=== PATIENT | female | born 1945 | race Caucasian/White ===

== ENCOUNTER 2019-09-09 18:39 | Inpatient (IN) | payer OTHER, MEDICARE ==
--- NOTE | 2019-09-09 18:55 | ER Document Report ---
ED Medical Screen (RME) - General Chief Complaint: Abdominal Pain Stated Complaint: ABDOMINAL PAIN Notes: Patient is a 74-year-old white female with past medical history of diabetes, hypertension, hyperlipidemia and peripheral vascular disease who presents the emergency department the chief complaint of right-sided abdominal pain that began 2 days ago. She states is been associated with some scant episodes of nausea and vomiting. She denies any specific provocative or palliative factors. She denies any fever. No diarrhea. No recent travel or known sick contacts. No urinary symptoms. I have treated and performed a rapid initial assessment of this patient. A comprehensive ED assessment and evaluation of the patient, analysis of test results and completion of medical decision making process will be conducted by additional ED providers. PHYSICAL EXAMINATION: GENERAL: Well-appearing, well-nourished and in no acute distress. A&Ox4. Answers questions appropriately. Physical Exam - Vital signs Vitals: Temp Pulse Resp BP Pulse Ox 98.7 F 125 H 18 177/79 H 93 09/09/19 18:46 09/09/19 18:46 09/09/19 18:46 09/09/19 18:46 09/09/19 18:46 Course - Vital Signs Vital signs: Temp Pulse Resp BP Pulse Ox 98.7 F 125 H 18 177/79 H 93 09/09/19 18:46 09/09/19 18:46 09/09/19 18:46 09/09/19 18:46 09/09/19 18:46
[2019-09-09 19:56] LABS: APPEARANCE,URINE SLIGHTLY-CLOUDY; BILIRUBIN,URINE NEGATIVE (NEGATIVE); GLUCOSE, URINE 50 mg/dL (NEGATIVE); KETONES,URINE NEGATIVE (NEGATIVE); PROTEIN,URINE 30 mg/dL (NEGATIVE); UROBILINOGEN,URINE NEGATIVE mg/dL (<2.0)
[2019-09-09 19:57] LABS: COLOR,URINE DARK YELLOW
[2019-09-09 20:09] LABS: ALBUMIN 3.4 g/dL (3.5-5.0); ALKALINE PHOSPHATASE 121 U/L (38-126); ANION GAP 10 (5-19); ASPARTATE AMINO TRANSFERASE 28 U/L (14-36); BILIRUBIN,DIRECT 0.2 mg/dL (0.0-0.4); BILIRUBIN,TOTAL 1.1 mg/dL (0.2-1.3); BLOOD UREA NITROGEN 18 mg/dL (7-20); CALCIUM 9.1 mg/dL (8.4-10.2); CARBON DIOXIDE 23 mmol/L (22-30); CHLORIDE 98 mmol/L (98-107); GLUCOSE 267 mg/dL (75-110); POTASSIUM 4.7 mmol/L (3.6-5.0); TOTAL PROTEIN 7.3 g/dL (6.3-8.2)
[2019-09-09 20:20] LABS: HEMOGLOBIN 14.1 g/dL (12.0-15.5); MEAN CORPUSCULAR HEMOGLOBIN 30.6 pg (27.0-33.4); MEAN CORPUSCULAR HGB CONC 34.3 g/dL (32.0-36.0); MEAN CORPUSCULAR VOLUME 89 fl (80-97); PLATELET COUNT 312 10^3/uL (150-450); RED CELL DISTRIBUTION WIDTH 14.4 % (11.5-14.0); WHITE BLOOD COUNT 17.9 10^3/uL (4.0-10.5)
[2019-09-09 20:26] LABS: ABSOLUTE LYMPHOCYTES# (MANUAL) 0.7 10^3/uL (0.5-4.7); ABSOLUTE MONOCYTES # (MANUAL) 0.9 10^3/uL (0.1-1.4); BASOPHILS % (MANUAL) 0 % (0-2); EOSINOPHILS % (MANUAL) 0 % (0-6); LYMPHOCYTES % (MANUAL) 4 % (13-45); MONOCYTES % (MANUAL) 5 % (3-13); SEGMENTED NEUTROPHILS % (MAN) 91 % (42-78); TOTAL CELLS COUNTED 100
[2019-09-09 20:27] LABS: TOXIC GRANULATION SLIGHT
[2019-09-09 20:28] LABS: ANISOCYTOSIS SLIGHT; BURR CELLS SLIGHT; OVALOCYTES SLIGHT; PLATELET COMMENT ADEQUATE; POIKILOCYTOSIS SLIGHT
[2019-09-09] MEDS ORDERED: MORPHINE SULFATE 10 MG/ML INJ IV ONE (20:30)
[2019-09-09] MEDS ORDERED: NORMAL SALINE 1000 ML 1,000 ML IV ONE ×2 (20:31→22:56)
[2019-09-09] MEDS ORDERED: ONDANSETRON HCL INJ/PF 4 MG/2 ML SDV IV ONE (20:31)
--- NOTE | 2019-09-09 20:35 | ER Document Report ---
ED GI/ - General Chief Complaint: Abdominal Pain Stated Complaint: ABDOMINAL PAIN Time Seen by Provider: 09/09/19 20:25 Notes: Patient is a 74-year-old female that comes emergency department for chief complaint of worsening abdominal pain over the past 2 days or so, she states that it started with pain in her right abdomen and has significantly worsened, she vomited 3 times yesterday and once today, she tried eating around lunchtime but was unable to. She denies flank pain, dysuria, fever/chills, or any other locations of pain. She denies abnormal bowel movements. Past medical history includes insulin-dependent type 2 diabetes, hypertension, hyperlipidemia, CAD with stents. She is not on a blood thinner other than Aspirin. She denies any abdominal surgeries. - Related Data Allergies/Adverse Reactions: No Known Allergies Allergy (Unverified 09/09/19 18:56) Past Medical History - General Information source: Patient - Social History Smoking Status: Never Smoker Frequency of alcohol use: None Drug Abuse: None Lives with: Family Family History: Reviewed & Not Pertinent Patient has suicidal ideation: No Patient has homicidal ideation: No - Past Medical History Cardiac Medical History: Reports: Hx Coronary Artery Disease, Hx Hypercholesterolemia, Hx Hypertension Endocrine Medical History: Reports: Hx Diabetes Mellitus Type 2 Past Surgical History: Reports: Hx Cardiac Catheterization - Immunizations Immunizations up to date: Yes Hx Diphtheria, Pertussis, Tetanus Vaccination: Yes Review of Systems - Review of Systems Constitutional: No symptoms reported EENT: No symptoms reported Cardiovascular: No symptoms reported Respiratory: No symptoms reported Gastrointestinal: See HPI Genitourinary: No symptoms reported Female Genitourinary: No symptoms reported Musculoskeletal: No symptoms reported Skin: No symptoms reported Hematologic/Lymphatic: No symptoms reported Neurological/Psychological: No symptoms reported Physical Exam - Vital signs Vitals: Temp Pulse Resp BP Pulse Ox 98.7 F 125 H 18 177/79 H 93 09/09/19 18:46 09/09/19 18:46 09/09/19 18:46 09/09/19 18:46 09/09/19 18:46 - Notes Notes: GENERAL: Alert, cooperative, appears to be in pain HEAD: Normocephalic, atraumatic. EYES: Pupils equal, round, and reactive to light. Extraocular movements intact. ENT: Oral mucosa moist, tongue midline. Oropharynx unremarkable. Airway patent. LUNGS: Clear to auscultation bilaterally, no wheezes, rales, or rhonchi. No respiratory distress. Non-tender chest wall. HEART: Tachycardic, normal rhythm, no murmur ABDOMEN: No rigidity or distention but patient has peritoneal signs and is guarding all along the right side of the abdomen in both upper and lower quadrants. Left side of the abdomen is benign. Bowel sounds are present. GENITOURINARY: Unremarkable with no concerning findings EXTREMITIES: Moves all 4 extremities spontaneously. No edema, normal radial and dorsalis pedis pulses bilaterally. No cyanosis. BACK: no cervical, thoracic, lumbar midline tenderness. No saddle anesthesia, normal distal neurovascular exam. Moves all extremities in full range of motion. NEUROLOGICAL: Alert and oriented x3. Normal speech. Cranial nerves II through XII grossly intact. Strength 5/5 in all extremities. PSYCH: Normal affect, normal mood. SKIN: Warm, dry, normal turgor. No rashes or lesions noted. Course - Re-evaluation Re-evalutation: Patient has obvious pain with any movement, patient is guarding all on the right side of her abdomen and both upper and lower quadrants, she is tachycardic and ill-appearing. On reevaluation patient is much more comfortable, she states her pain is completely gone. She still mildly tachycardic, she is receiving IV fluids. CBC shows leukocytosis at 17.9 with elevation of neutrophils, chemistry nonspecific, urinalysis shows elevated specific gravity but is otherwise unremarkable. CT was delayed for some reason but is being performed to rule out acute abdomen. CT of the abdomen and pelvis with IV contrast showing acute cholecystitis, does not show acute appendicitis. Patient does have a somewhat long appearing gallbladder. She appears to have referred pain from this. Patient has been started on Zosyn and kept n.p.o. 09/09/19 23:22 Dr. Brown (general surgery) evaluated the patient, he recommends antibiotics, admission to the medical service for a 1-2 days on antibiotics, he recommends a dmission by medicine because patient has multiple comorbidities and she is 74 years old[address] Discuss[address] with Dr. Au, hospitalist, he accepts patient for admission to the medical floor. Patient states appreciation and agreement with plan. - Vital Signs Vital signs: Temp Pulse Resp BP Pulse Ox 99.7 F 116 H 17 154/71 H 92 09/10/19 01:08 09/10/19 01:08 09/10/19 01:08 09/10/19 01:08 09/10/19 01:08 - Laboratory Result Diagrams: 09/10/19 05:18 09/09/19 19:15 Laboratory results interpreted by me: 09/09/19 09/09/19 09/09/19 19:15 19:15 19:15 WBC 17.9 H RDW 14.4 H Seg Neuts % (Manual) 91 H Lymphocytes % (Manual) 4 L Abs Neuts (Manual) 16.3 H Sodium 131.0 L Est GFR ( Amer) 56 L Est GFR (MDRD) Non-Af 46 L Glucose 267 H Albumin 3.4 L TSH Free T3 pg/mL Urine Protein 30 H Urine Glucose (UA) 50 H Urine Blood SMALL H Leukocyte Esterase Rfl MODERATE H 09/09/19 09/09/19 19:15 19:15 WBC RDW Seg Neuts % (Manual) Lymphocytes % (Manual) Abs Neuts (Manual) Sodium Est GFR ( Amer) Est GFR (MDRD) Non-Af Glucose Albumin TSH 0.08 L Free T3 pg/mL 2.00 L Urine Protein Urine Glucose (UA) Urine Blood Leukocyte Esterase Rfl Discharge - Discharge Clinical Impression: Acute cholecystitis Abdominal pain Qualifiers: Abdominal location: generalized Qualified Code(s): R10.84 - Generalized abdominal pain Vomiting Qualifiers: Vomiting type: unspecified Vomiting Intractability: non-intractable Nausea presence: with nausea Qualified Code(s): R11.2 - Nausea with vomiting, unspecified Leukocytosis Qualifiers: Leukocytosis type: unspecified Qualified Code(s): D72.829 - Elevated white blood cell count, unspecified Condition: Stable Disposition: ADMITTED INPATIENT Admitting Provider: Angely (Hospitalist) Unit Admitted: Medical Floor
--- NOTE | 2019-09-09 22:30 | RADIOLOGY REPORT (SQ) ---
EXAM DESCRIPTION: CT ABDOMEN PELVIS WITH IV CONTRAST COMPLETED DATE/TME: 09/09/2019 20:31 CLINICAL HISTORY: 74 years Female RLQ pain, r/o appendicitis COMPARISON: None. TECHNIQUE: Contiguous axial images obtained through the abdomen and pelvis following IV contrast. Reformatted images obtained. This exam was performed according to our department optimization program which includes automated exposure control, adjustment of the mA and/or kv according to patient size and/or use of iterative reconstruction technique. FINDINGS: Atelectasis in the lung bases bilaterally. Hiatal hernia. The spleen and pancreas appear unremarkable. No adrenal masses. The kidneys appear unremarkable. No hydronephrosis. The gallbladder is distended with wall thickening and marked surrounding inflammatory change consistent with acute cholecystitis. There is adjacent wall thickening in the hepatic flexure of the colon. Some wall thickening also present in the duodenum. Cholelithiasis is suspected. No aneurysmal dilatation of the aorta. Extensive vascular calcification. No bowel obstruction. The appendix is mildly prominent in the axial images but it appears normal in caliber on the coronal sequence. Suspect that the appendix is within normal limits. The wall does not appear thickened.. Small amount of free fluid in the pelvis. IMPRESSION: Findings consistent with cholelithiasis and acute cholecystitis with adjacent wall thickening in the duodenum and the hepatic flexure of the colon. This could be further evaluated with ultrasound or nuclear medicine study Appendix likely within normal limits. No convincing evidence for appendicitis Small amount of free fluid in the pelvis Extensive vascular calcification Moderate hiatal hernia with bilateral basilar atelectasis
[2019-09-09] MEDS ORDERED: PIPERACILLIN/TAZOBACTAM 3.375 GM VIAL IV ONE (22:42)
--- NOTE | 2019-09-09 23:43 | PDOC CONSULTATION ---
Consultation Consult Date: 09/09/19 Attending physician:: KERI CEE Provider Consulted: KEVIN JIMENEZ Consult reason:: cholecystitis History of Present Illness Admission Date/PCP: YARY SAMUELS PA-C History of Present Illness: NELLY BELL is a 74 year old female that comes emergency department for chief complaint of worsening abdominal pain over the past 2 days or so, she states that it started with pain in her right abdomen and has significantly worsened, she vomited 3 times yesterday and once today, she tried eating around lunchtime but was unable to. She denies flank pain, dysuria, fever/chills, or any other locations of pain. She denies abnormal bowel movements. Past medical history includes insulin-dependent type 2 diabetes, hypertension, hyperlipidemia, CAD with stents. She is not on a blood thinner other than Aspirin. She denies any abdominal surgeries Past Medical History Cardiac Medical History: Reports: Hyperlipidema, Hypertension Endocrine Medical History: Reports: Diabetes Mellitus Type 2 Past Surgical History Past Surgical History: Reports: Other - shoulder/neck surgery reported by pt Social History Lives with: Family Smoking Status: Never Smoker Family History Parental Family History Reviewed: No Children Family History Reviewed: NA Sibling(s) Family History Reviewed.: NA Medication/Allergy Allergies/Adverse Reactions: No Known Allergies Allergy (Unverified 09/09/19 18:56) Review of Systems Constitutional: PRESENT: anorexia, weakness Eyes: ABSENT: as per HPI, visual disturbances, other Ears: ABSENT: as per HPI, hearing changes, other Nose, Mouth, and Throat: ABSENT: as per HPI, headache(s), mouth pain, sore throat, vertigo, other Breasts: ABSENT: as per HPI, other Cardiovascular: ABSENT: as per HPI, chest pain, dyspnea on exertion, edema, orthropnea, palpitations, other Respiratory: ABSENT: as per HPI, cough, dyspnea, hemoptysis, sputum, other Gastrointestinal: ABSENT: as per HPI, abdominal pain, bloating, coffee ground emesis, constipation, diarrhea, dysphagia, heartburn, hematemesis, hematochezia, melena, nausea, vomiting, other Genitourinary: ABSENT: as per HPI, difficulty urinating, dysuria, hematuria, nocturia, other Musculoskeletal: ABSENT: as per HPI, back pain, deformity, joint swelling, muscle weakness, other Integumentary: ABSENT: as per HPI, diaphoresis, erythema, lesions, pruritus, rash, wounds, other Neurological: ABSENT: as per HPI, abnormal gait, abnormal movements, abnormal speech, confusion, convulsions, dizziness, focal weakness, frequent falls, lack of coordination, memory loss, numbness, paresthesias, restless legs, syncope, tingling, tremor(s), vertigo, weakness, other Psychiatric: ABSENT: as per HPI, anxiety, depression, hallucinations, homidical ideation, suicidal ideation, other Endocrine: ABSENT: as per HPI, cold intolerance, flushing, heat intolerance, menstrual abnormalities, polydipsia, polyphagia, polyuria, other Hematologic/Lymphatic: ABSENT: as per HPI, easy bleeding, easy bruising, lymphadenopathy, other Allergic/Immunologic: ABSENT: as per HPI, seasonal rhinorrhea, other Physical Exam Vital Signs: Temp Pulse Resp BP Pulse Ox 99.8 F 118 H 25 H 159/74 H 92 09/09/19 23:10 09/09/19 23:10 09/09/19 23:10 09/09/19 23:10 09/09/19 23:10 Intake & Output 09/08/19 09/09/19 09/10/19 06:59 06:59 06:59 Intake Total 1000 Balance 1000 Weight 72.8 kg General appearance: PRESENT: mild distress Head exam: PRESENT: atraumatic Eye exam: PRESENT: EOMI Mouth exam: PRESENT: dry mucosa Teeth exam: PRESENT: poor dentation Neck exam: PRESENT: full ROM Respiratory exam: PRESENT: clear to auscultation radha Cardiovascular exam: PRESENT: RRR Pulses: PRESENT: normal radial pulses, normal femoral pulses Vascular exam: PRESENT: normal capillary refill Breast: PRESENT: Normal GI/Abdominal exam: PRESENT: other - tender ruq with extension to rt lower quadr ent + becker's Rectal exam: PRESENT: deferred Extremities exam: PRESENT: full ROM Musculoskeletal exam: PRESENT: full ROM Neurological exam: PRESENT: alert, awake, oriented to person, oriented to place Psychiatric exam: PRESENT: appropriate affect Skin exam: PRESENT: dry Results Laboratory Results: 09/09/19 19:15 09/09/19 19:15 09/09/19 09/09/19 09/09/19 19:15 19:15 19:15 WBC 17.9 H RBC 4.60 Hgb 14.1 Hct 41.0 MCV 89 MCH 30.6 MCHC 34.3 RDW 14.4 H Plt Count 312 Seg Neutrophils % Not Reportable Sodium 131.0 L Potassium 4.7 Chloride 98 Carbon Dioxide 23 Anion Gap 10 BUN 18 Creatinine 1.16 Est GFR ( Amer) 56 L Glucose 267 H Calcium 9.1 Total Bilirubin 1.1 AST 28 Alkaline Phosphatase 121 Total Protein 7.3 Albumin 3.4 L Lipase 41.5 Urine Color DARK YELLOW Urine Appearance SLIGHTLY-CLOUDY Urine pH 5.0 Ur Specific Rea 1.020 Urine Protein 30 H Urine Glucose (UA) 50 H Urine Ketones NEGATIVE Urine Blood SMALL H Urine RBC (Auto) 4 Impressions: Abdomen/Pelvis CT 09/09/19 20:31 IMPRESSION: Findings consistent with cholelithiasis and acute cholecystitis with adjacent wall thickening in the duodenum and the hepatic flexure of the colon. This could be further evaluated with ultrasound or nuclear medicine study Appendix likely within normal limits. No convincing evidence for appendicitis Small amount of free fluid in the pelvis Extensive vascular calcification Moderate hiatal hernia with bilateral basilar atelectasis Assessment & Plan - Diagnosis (1) Abdominal pain Qualifiers: Abdominal location: generalized Qualified Code(s): R10.84 - Generalized abdominal pain - Plan Summary Plan Summary: pt with diabetes, ruq pain and elevated wbc ct c/w thickened gallbladder wall and pericholecystic stranding c/w clinical picture of acute cholecystitis pt has extensive medical hx and is s/p coronary art stenting pt is unsure whether she is on an antiplatlet med recommend medical eval and admission would start iv abx iv hydration and will reeval pt in am for cholecystectomy.
[2019-09-10] MEDS ORDERED: ONDANSETRON HCL INJ/PF 4 MG/2 ML SDV IV PRN (00:01)
[2019-09-10] MEDS ORDERED: RINGERS SOLUTION,LACTATED 1,000 ML IV PRN (00:01)
[2019-09-10] MEDS ORDERED: GLUCAGON,HUMAN RECOMB 1 MG INJ IM PRN (00:09)
[2019-09-10] MEDS ORDERED: DEXTROSE 40% GEL 15 GM TUBE PO PRN ×3 (00:09→06:53)
[2019-09-10] MEDS ORDERED: DEXTROSE 50%-WATER 25 GM/50 ML DISP.SYRIN IV PRN ×4 (00:09→06:53)
[2019-09-10] MEDS ORDERED: ACETAMINOPHEN 325 MG TABLET PO PRN (00:12)
[2019-09-10] MEDS ORDERED: HYDRALAZINE HCL INJ/PF 20 MG/1 ML SDV IV PRN (00:12)
[2019-09-10] MEDS ORDERED: ACETAMINOPHEN 650 MG SUPP.RECT PR PRN (00:12)
[2019-09-10] MEDS ORDERED: LORAZEPAM INJ 2 MG/1 ML VIAL IV PRN (00:12)
[2019-09-10] MEDS ORDERED: MORPHINE SULFATE 10 MG/ML INJ IV PRN ×3 (00:12)
[2019-09-10] MEDS ORDERED: GUAIFENESIN SYRP 200 MG/10 ML UDC PO PRN (00:12)
[2019-09-10] MEDS: NORMAL SALINE 1000 ML 1,000 ML IV PRN ×2 (00:24→23:13)
[2019-09-10] MEDS ORDERED: PIPERACILLIN/TAZOBACTAM 3.375 GM VIAL IV PRN (01:00)
[2019-09-10] MEDS ORDERED: PIPERACILLIN/TAZOBACTAM 3.375 GM VIAL IV ONE (01:12)
--- NOTE | 2019-09-10 01:34 | PDOC H&P ---
History of Present Illness Admission Date/PCP: 09/09/2019 23:40 YARY SAMUELS PA-C Patient complains of: Abdominal pain History of Present Illness: NELLY ELLIOTT is a 74 year old female who presented to the emergency room with a 3-day history of abdominal pain. She admits to the gradual onset and progressively worsening of a constant, waxing and waning, colicky-pressure pain in her right abdomen without radiation. Her pain is accompanied by nausea with vomiting and is associated with anorexia. She denies other associated or accompanying signs and symptoms. She denies prior similar episodes. She has not identified any aggravating or ameliorating factors for her abdominal pain. In the emergency room she was found to have an elevated white blood count and was noted to have acute cholecystitis on CT of the abdomen and pelvis. She was seen in consultation at the request the emergency room physician by Dr. Brown who has requested that the hospitalist service admit the patient and consult him for surgical care. Patient was subsequently admitted to the hospital for further evaluation treatment. Past Medical History Cardiac Medical History: Reports: Coronary Artery Disease, Hyperlipidema, Hypertension, Peripheral Vascular Disease Denies: Atrial Fibrillation, Congestive Heart Failure, DVT, Myocardial Infarction, Pulmonary Embolism Pulmonary Medical History: Denies: Asthma, Chronic Obstructive Pulmonary Disease (COPD) EENT Medical History: Denies: None, Cataracts, Ears - Hearing aids Neurological Medical History: Denies: Hemorrhagic CVA, Ischemic CVA, Seizures Endocrine Medical History: Reports: Diabetes Mellitus Type 2, Obesity Denies: Diabetes Mellitus Type 1, Hyperthyroidism, Hypothyroidism Renal/ Medical History: Denies: Chronic Kidney Disease, Nephrolithiasis Malignancy Medical History: Reports: None GI Medical History: Denies: Cirrhosis, Crohn's Disease, Gastroesophageal Reflux Disease, Hepatitis, Peptic Ulcer Disease, Ulcerative Colitis Musculoskeltal Medical History: Reports: Arthritis Denies: Gout Skin Medical History: Denies: Eczema, Psoriasis Psychiatric Medical History: Denies: Alcohol Dependency, Substance Abuse, Tobacco Dependency Traumatic Medical History: Reports: None Hematology: Denies: Anemia, Bleeding Tendencies Infectious Medical History: Reports: None Past Surgical History Past Surgical History: Reports: Cardiac Catheterization, Carotid Endarterectomy - Right, Coronary Stent - X2, Orthopedic Surgery - Right rotator cuff surgery, Vascular Surgery - Multiple arterial stents to the left lower extremity Social History Information Source: Patient Lives with: Family Smoking Status: Never Smoker Electronic Cigarette use?: No Frequency of Alcohol Use: None Hx Recreational Drug Use: No Drugs: None Hx Prescription Drug Abuse: No - Advance Directive Resuscitation Status: Full Code Surrogate healthcare decision maker:: Alek Elliott Family History Family History: CAD, DM, Hyperlipidemia, Hypertension, Malignancy, Other - Peripheral vascular disease Parental Family History Reviewed: Yes Children Family History Reviewed: No Sibling(s) Family History Reviewed.: Yes Medication/Allergy Allergies/Adverse Reactions: No Known Allergies Allergy (Unverified 09/09/19 18:56) Review of Systems Constitutional: ABSENT: chills, fever(s) Eyes: ABSENT: visual disturbances, other - Eye pain Ears: ABSENT: hearing changes, other - Ear pain Nose, Mouth, and Throat: ABSENT: headache(s), sore throat Cardiovascular: ABSENT: chest pain, palpitations Respiratory: ABSENT: cough, dyspnea Gastrointestinal: PRESENT: as per HPI, abdominal pain, nausea, vomiting. ABSENT: constipation, diarrhea, hematemesis Genitourinary: ABSENT: dysuria, hematuria Musculoskeletal: ABSENT: back pain, joint swelling Integumentary: ABSENT: pruritus, rash Neurological: ABSENT: confusion, convulsions, focal weakness, memory loss, syncope Psychiatric: ABSENT: anxiety, depression Endocrine: ABSENT: cold intolerance, heat intolerance, polydipsia, polyphagia, polyuria Hematologic/Lymphatic: ABSENT: easy bleeding, easy bruising Allergic/Immunologic: ABSENT: seasonal rhinorrhea Physical Exam Vital Signs: Temp Pulse Resp BP Pulse Ox 99.8 F 118 H 25 H 159/74 H 92 09/09/19 23:10 09/09/19 23:10 09/09/19 23:10 09/09/19 23:10 09/09/19 23:10 Intake & Output 09/07/19 09/08/19 09/09/19 23:59 23:59 23:59 Intake Total 1000 Balance 1000 Weight 72.8 kg General appearance: PRESENT: cooperative, mild distress - Secondary to abdominal discomfort, obese Head exam: PRESENT: atraumatic, normocephalic Eye exam: PRESENT: conjunctiva pink. ABSENT: conjunctival injection, scleral icterus Ear exam: PRESENT: normal external ear exam. ABSENT: bleeding, drainage Mouth exam: PRESENT: dry mucosa, neck supple Teeth exam: PRESENT: poor dentation Neck exam: ABSENT: thyromegaly, tracheal deviation Respiratory exam: PRESENT: clear to auscultation radha, symmetrical, unlabored Cardiovascular exam: PRESENT: RRR. ABSENT: clicks, gallop, rubs Pulses: PRESENT: normal radial pulses, normal dorsalis pedis pul Vascular exam: PRESENT: normal capillary refill. ABSENT: pallor GI/Abdominal exam: PRESENT: hypoactive bowel sounds, Shannon's sign, soft, tenderness - Right abdominal tenderness greater in the upper versus the lower quadrant, without localization.. ABSENT: distended Rectal exam: PRESENT: deferred Extremities exam: ABSENT: joint swelling, pedal edema Musculoskeletal exam: ABSENT: deformity, dislocation Neurological exam: PRESENT: alert, oriented to person, oriented to place, oriented to time, oriented to situation, CN II-XII grossly intact. ABSENT: motor sensory deficit Psychiatric exam: PRESENT: appropriate affect, normal mood Skin exam: PRESENT: dry, intact, warm. ABSENT: jaundice, rash, urticaria Results Laboratory Results: 09/09/19 19:15 09/09/19 19:15 09/09/19 09/09/19 09/09/19 19:15 19:15 19:15 WBC 17.9 H RBC 4.60 Hgb 14.1 Hct 41.0 MCV 89 MCH 30.6 MCHC 34.3 RDW 14.4 H Plt Count 312 Seg Neutrophils % Not Reportable Sodium 131.0 L Potassium 4.7 Chloride 98 Carbon Dioxide 23 Anion Gap 10 BUN 18 Creatinine 1.16 Est GFR ( Amer) 56 L Glucose 267 H Calcium 9.1 Total Bilirubin 1.1 AST 28 Alkaline Phosphatase 121 Total Protein 7.3 Albumin 3.4 L Lipase 41.5 Urine Color DARK YELLOW Urine Appearance SLIGHTLY-CLOUDY Urine pH 5.0 Ur Specific [place] 1.020 Urine Protein 30 H Urine Glucose (UA) 50 H Urine Ketones NEGATIVE Urine Blood SMALL H Urine RBC (Auto) 4 Impressions: Abdomen/Pelvis CT 09/09/19 20:31 IMPRESSION: Findings consistent with cholelithiasis and acute cholecystitis with adjacent wall thickening in the duodenum and the hepatic flexure of the colon. This could be further evaluated with ultrasound or nuclear medicine study Appendix likely within normal limits. No convincing evidence for appendicitis Small amount of free fluid in the pelvis Extensive vascular calcification Moderate hiatal hernia with bilateral basilar atelectasis Assessment and Plan - Diagnosis (1) Acute cholecystitis Is this a current diagnosis for this admission?: Yes (2) Abdominal pain Qualifiers: Abdominal location: generalized Qualified Code(s): R10.84 - Generalized abdominal pain Is this a current diagnosis for this admission?: Yes (3) Vomiting Qualifiers: Vomiting type: unspecified Vomiting Intractability: non-intractable Nausea presence: with nausea Qualified Code(s): R11.2 - Nausea with vomiting, unspecified Is this a current diagnosis for this admission?: Yes (4) Leukocytosis Qualifiers: Leukocytosis type: unspecified Qualified Code(s): D72.829 - Elevated white blood cell count, unspecified Is this a current diagnosis for this admission?: Yes (5) Peripheral vascular disease Is this a current diagnosis for this admission?: Yes (6) Coronary artery disease Qualifiers: Coronary Disease-Associated Artery/Lesion type: [place] artery [place] vs. transplanted heart: [place] heart Associated angina: without angina Qualified Code(s): I25.10 - Atherosclerotic heart disease of [place] coronary artery without angina pectoris Is this a current diagnosis for this admission?: Yes (7) Diabetes mellitus type 2 in obese Is this a current diagnosis for this admission?: Yes (8) Hyperlipidemia Is this a current diagnosis for this admission?: Yes (9) Hypertension Qualifiers: Hypertension type: essential hypertension Qualified Code(s): I10 - Essential (primary) hypertension Is this a current diagnosis for this admission?: Yes (10) Obesity Qualifiers: Obesity type: unspecified obesity type Obesity classification: unspecified obesity classification Serious obesity comorbidity presence: unspecified whether serious comorbidity present Qualified Code(s): E66.9 - Obesity, unspecified Is this a current diagnosis for this admission?: Yes - Plan Summary Summary: Patient will be admitted to medical floor where she received routine supportive and symptomatic cares. She will be placed on IV Zosyn. She will receive IV fluids as both maintenance and replacement for presumed mild hypovolemia due to decreased oral intake and vomiting. Dr. Brown will be consulted for surgical management. She will use morphine sulfate 2 to 4 mg IV every 2 hours as needed for pain utilizing a sliding scale for dosing. She will have Ativan 1 mg IV e very 4 hours as needed for anxiety or restlessness. Before meals and at bedtime Accu-Cheks to be performed and sliding scale insulin will be used for hyperglycemia with a hypoglycemic protocol also in place. CBCs, metabolic profiles, magnesium levels, hemoglobin A1c's, lipid profiles, thyroid profiles and liver function studies will be ordered as needed. Patient will be on a clear liquid diet with diabetic and cardiac restrictions. - Time Time Spent with patient: 15-24 minutes Medications reviewed and adjusted accordingly: Yes Anticipated discharge: Home with Homehealth - Inpatient Certification Based on my medical assessment, after consideration of the patient's comorbi dities, presenting symptoms, or acuity I expect that the services needed warrant INPATIENT care.: Yes I certify that my determination is in accordance with my understanding of Medicare's requirements for reasonable and necessary INPATIENT services [42 CFR 412.3e].: Yes Medical Necessity: Significant Comorbidiites Make Outpatient Treatment Too Risky, Need Close Monitoring Due to Risk of Patient Decompensation, Need For IV Fluids, Need for Pain Control, Need for IV Antibiotics, Need for Surgery, Risk of Complication if Not Cared For in Hospital
[2019-09-10] MEDS: PIPERACILLIN SODIUM/TAZOBACTAM 3.375 GM in NORMAL SALINE 100 ML IV SCH ×4 (05:23→23:12)
[2019-09-10] MEDS: HEPARIN SOD (PORCINE) 5,000 UNIT/ML 1 ML VIAL SUBCUT SCH ×3 (05:27→22:50)
[2019-09-10 05:28] LABS: HEMATOCRIT 35.2 % (36.0-47.0); HEMOGLOBIN 12.2 g/dL (12.0-15.5); MEAN CORPUSCULAR HEMOGLOBIN 30.4 pg (27.0-33.4); MEAN CORPUSCULAR HGB CONC 34.6 g/dL (32.0-36.0); MEAN CORPUSCULAR VOLUME 88 fl (80-97); PLATELET COUNT 246 10^3/uL (150-450); RED CELL DISTRIBUTION WIDTH 14.6 % (11.5-14.0); WHITE BLOOD COUNT 10.2 10^3/uL (4.0-10.5)
[2019-09-10 05:50] LABS: ANION GAP 6 (5-19); BLOOD UREA NITROGEN 15 mg/dL (7-20); CALCIUM 7.8 mg/dL (8.4-10.2); CARBON DIOXIDE 23 mmol/L (22-30); CHLORIDE 104 mmol/L (98-107); CHOLESTEROL 92.47 mg/dL (0-200); GLUCOSE 124 mg/dL (75-110); TRIGLYCERIDES 68 mg/dL (<150)
[2019-09-10 06:00] LABS: DIRECT LDL 37 mg/dL (<100)
[2019-09-10 06:10] LABS: POTASSIUM 3.7 mmol/L (3.6-5.0)
[2019-09-10] MEDS ORDERED: GLUCAGON,HUMAN RECOMB 1 MG INJ SUBCUT PRN (06:53)
[2019-09-10] MEDS: RINGERS SOLUTION,LACTATED 1,000 ML IV PRN ×2 (07:49→17:27)
[2019-09-10] MEDS: INSULIN REG, HUMAN 100 UNIT/ML 3 ML VIAL (PYX) SUBCUT SCH ×4 (07:56→22:50)
[2019-09-10] MEDS ORDERED: METOPROLOL TARTRATE 50 MG TABLET PO ONE (09:24)
[2019-09-10] MEDS ORDERED: LISINOPRIL 10 MG TABLET PO ONE (09:24)
--- NOTE | 2019-09-10 10:02 | PDOC PROGRESS REPORT ---
Subjective Progress Note for:: 09/10/19 Subjective:: The patient's abdominal pain is better but not completely gone. She is currently n.p.o. for surgery. Her blood pressures are starting to run high. Reason For Visit: ACUTE CHOLECYSTITIS,ABDOMINAL PAIN,VOMITING Physical Exam Vital Signs: Temp Pulse Resp BP Pulse Ox 98.5 F 99 18 168/57 H 95 09/10/19 08:00 09/10/19 08:00 09/10/19 08:00 09/10/19 08:00 09/10/19 08:00 Intake & Output 09/09/19 09/10/19 09/11/19 06:59 06:59 06:59 Intake Total 2100 100 Balance 2100 100 Weight 75.4 kg General appearance: PRESENT: cooperative, mild distress, well-developed, well- nourished Head exam: PRESENT: atraumatic, normocephalic Eye exam: PRESENT: conjunctiva pink. ABSENT: scleral icterus Ear exam: PRESENT: normal external ear exam. ABSENT: bleeding, drainage Mouth exam: PRESENT: dry mucosa, tongue midline Respiratory exam: PRESENT: clear to auscultation radha, symmetrical, unlabored. ABSENT: accessory muscle use, prolonged expiratory phas, rales, rhonchi, tachypnea, wheezes Cardiovascular exam: PRESENT: RRR, +S1, +S2. ABSENT: diastolic murmur, irregular rhythm, systolic murmur GI/Abdominal exam: PRESENT: diminished bowel sounds, soft, tenderness - Upper abdomen. ABSENT: distended, guarding Rectal exam: PRESENT: deferred Gentrourinary exam: ABSENT: indwelling catheter Extremities exam: ABSENT: joint swelling, pedal edema Musculoskeletal exam: PRESENT: ambulatory, full ROM, normal inspection Neurological exam: PRESENT: alert, awake, oriented to person, oriented to place, oriented to time, oriented to situation, CN II-XII grossly intact. ABSENT: altered, motor sensory deficit Psychiatric exam: PRESENT: anxious - Slightly anxious about surgery, appropriate affect. ABSENT: agitated Focused psych exam: ABSENT: delusional, paranoid, restlessness Skin exam: PRESENT: dry, normal color, warm. ABSENT: rash Results Laboratory Results: 09/10/19 05:18 09/10/19 05:18 09/09/19 09/09/19 09/09/19 19:15 19:15 19:15 WBC 17.9 H RBC 4.60 Hgb 14.1 Hct 41.0 MCV 89 MCH 30.6 MCHC 34.3 RDW 14.4 H Plt Count 312 Seg Neutrophils % Not Reportable Sodium 131.0 L Potassium 4.7 Chloride 98 Carbon Dioxide 23 Anion Gap 10 BUN 18 Creatinine 1.16 Est GFR ( Amer) 56 L Glucose 267 H Lactic Acid Calcium 9.1 Magnesium Total Bilirubin 1.1 AST 28 Alkaline Phosphatase 121 Total Protein 7.3 Albumin 3.4 L Triglycerides Cholesterol LDL Cholesterol Direct VLDL Cholesterol HDL Cholesterol Amylase Lipase 41.5 TSH Free T3 pg/mL Urine Color DARK YELLOW Urine Appearance SLIGHTLY-CLOUDY Urine pH 5.0 Ur Specific [place] 1.020 Urine Protein 30 H Urine Glucose (UA) 50 H Urine Ketones NEGATIVE Urine Blood SMALL H Urine RBC (Auto) 4 09/09/19 09/09/19 09/09/19 19:15 19:15 19:15 WBC RBC Hgb Hct MCV MCH MCHC RDW Plt Count Seg Neutrophils % Sodium Potassium Chloride Carbon Dioxide Anion Gap BUN Creatinine Est GFR ( Amer) Glucose Lactic Acid Calcium Magnesium Total Bilirubin AST Alkaline Phosphatase Total Protein Albumin Triglycerides Cholesterol LDL Cholesterol Direct VLDL Cholesterol HDL Cholesterol Amylase 74 Lipase TSH 0.08 L Free T3 pg/mL 2.00 L Urine Color Urine Appearance Urine pH Ur Specific [place] Urine Protein Urine Glucose (UA) Urine Ketones Urine Blood Urine RBC (Auto) 09/10/19 09/10/19 09/10/19 01:13 05:18 05:18 WBC 10.2 RBC 4.00 Hgb 12.2 Hct 35.2 L MCV 88 MCH 30.4 MCHC 34.6 RDW 14.6 H Plt Count 246 Seg Neutrophils % Sodium Potassium Chloride Carbon Dioxide Anion Gap BUN Creatinine Est GFR ( Amer) Glucose Lactic Acid 1.8 1.4 Calcium Magnesium Total Bilirubin AST Alkaline Phosphatase Total Protein Albumin Triglycerides Cholesterol LDL Cholesterol Direct VLDL Cholesterol HDL Cholesterol Amylase Lipase TSH Free T3 pg/mL Urine Color Urine Appearance Urine pH Ur Specific [place] Urine Protein Urine Glucose (UA) Urine Ketones Urine Blood Urine RBC (Auto) 09/10/19 05:18 WBC RBC Hgb Hct MCV MCH MCHC RDW Plt Count Seg Neutrophils % Sodium 133.0 L Potassium 3.7 D Chloride 104 Carbon Dioxide 23 Anion Gap 6 BUN 15 Creatinine 0.92 Est GFR ( Amer) > 60 Glucose 124 H Lactic Acid Calcium 7.8 L Magnesium 1.6 Total Bilirubin AST Alkaline Phosphatase Total Protein Albumin Triglycerides 68 Cholesterol 92.47 LDL Cholesterol Direct 37 VLDL Cholesterol 14.0 HDL Cholesterol 41 Amylase Lipase TSH Free T3 pg/mL Urine Color Urine Appearance Urine pH Ur Specific [place] Urine Protein Urine Glucose (UA) Urine Ketones Urine Blood Urine RBC (Auto) Impressions: Abdomen/Pelvis CT 09/09/19 20:31 IMPRESSION: Findings consistent with cholelithiasis and acute cholecystitis with adjacent wall thickening in the duodenum and the hepatic flexure of the colon. This could be further evaluated with ultrasound or nuclear medicine study Appendix likely within normal limits. No convincing evidence for appendicitis Small amount of free fluid in the pelvis Extensive vascular calcification Moderate hiatal hernia with bilateral basilar atelectasis Assessment and Plan - Diagnosis (1) Acute cholecystitis Is this a current diagnosis for this admission?: Yes Plan: 09/10/2019 Patient with acute cholecystitis. Continue antibiotics. Planned cholecystectomy today as soon as she is cleared surgically. (2) Leukocytosis Qualifiers: Leukocytosis type: other Qualified Code(s): D72.828 - Other elevated white blood cell count Is this a current diagnosis for this admission?: Yes Plan: 09/10/2019 Secondary to acute cholecystitis. With antibiotics her white blood cell count is normal today. (3) Vomiting Qualifiers: Vomiting type: unspecified Vomiting Intractability: non-intractable Nausea presence: with nausea Qualified Code(s): R11.2 - Nausea with vomiting, unspecified Is this a current diagnosis for this admission?: Yes Plan: 09/10/2019 Secondary to acute cholecystitis. No vomiting this morning. 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 The patient exhibits good control. When she is on an oral diet will resume her Janumet , long-acting insulin (Toujeo) and diabetic diet. While she is n.p.o. she is having Accu-Cheks 4 times a day with sliding scale coverage. (5) Hypertension Qualifiers: Hypertension type: essential hypertension Qualified Code(s): I10 - Essential (primary) hypertension Is this a current diagnosis for this admission?: Yes Plan: 09/10/2019 Her blood pressures are up. This is a combination of the pain, anxiety and the fact that she has not taken her medicines yet today. She normally takes amlodipine 2.5 mg daily, lisinopril 10 mg daily and metoprolol tartrate 50 mg twice daily. We will resume these medications and monitor her blood pressures. (6) Hyperlipidemia Is this a current diagnosis for this admission?: Yes Plan: 09/10/2019 The patient has an excellent lipid panel. Continue the Zetia 10 mg daily and atorvastatin 40 mg daily. (7) Coronary artery disease Qualifiers: Coronary Disease-Associated Artery/Lesion type: [place] artery [place] vs. transplanted heart: [place] heart Associated angina: without angina Qualified Code(s): I25.10 - Atherosclerotic heart disease of [place] coronary artery without angina pectoris Is this a current diagnosis for this admission?: Yes Plan: 09/10/2019 Patient has a history of coronary disease. In addition to the medications outlined above she takes an aspirin 81 mg daily. She has not reported any chest pain, shortness of breath or diaphoresis. I have ordered an EKG to assess for cardiac clearance for her cholecystectomy. Unless there is anything untoward I believe she will be cleared for her cholecystectomy from a medical standpoint. (8) Anxiety and depression Is this a current diagnosis for this admission?: Yes Plan: We will continue her benzodiazepine therapy with Xanax as well as her Paxil 20 mg daily. (9) Arthritis Is this a current diagnosis for this admission?: Yes Plan: 09/10/2019 The medication list indicates that the patient takes Mobic 15 mg every day as well as diclofenac 50 mg twice a day and Celebrex 100 mg twice a day. She is on 3 different nonsteroidal anti-inflammatories. Consider consolidating therapy. Will defer this to her primary care provider. She is also on Neurontin and this may be related to diabetic neuropathy. (10) Diabetic neuropathy associated with type 2 diabetes mellitus Qualifiers: Diabetes mellitus complication detail: diabetic polyneuropathy Qualified Code(s): E11.42 - Type 2 diabetes mellitus with diabetic polyneuropathy Is this a current diagnosis for this admission?: Yes Plan: 09/10/2019 Continue Neurontin. Patient likely has diabetic neuropathy. (11) Hyponatremia Is this a current diagnosis for this admission?: Yes Plan: 09/10/2019 Serum sodium is just below the normal limit. Not clinically significant at this time. We will continue to monitor with laboratory studies. (12) Hypocalcemia Is this a current diagnosis for this admission?: Yes Plan: 09/10/2019 The patient exhibits low serum calcium. I will add calcium and vitamin D supplement postoperatively. - Plan Summary Summary: Patient will be admitted to medical floor where she received routine supportive and symptomatic cares. She will be placed on IV Zosyn. She will receive IV fluids as both maintenance and replacement for presumed mild hypovolemia due to decreased oral intake and vomiting. Dr. Brown will be consulted for surgical management. She will use morphine sulfate 2 to 4 mg IV every 2 hours as needed for pain utilizing a sliding scale for dosing. She will have Ativan 1 mg IV matteo ry 4 hours as needed for anxiety or restlessness. Before meals and at bedtime Accu-Cheks to be performed and sliding scale insulin will be used for hyperglycemia with a hypoglycemic protocol also in place. CBCs, metabolic profiles, magnesium levels, hemoglobin A1c's, lipid profiles, thyroid profiles and liver function studies will be ordered as needed. Patient will be on a clear liquid diet with diabetic and cardiac restrictions. - Time Time Spent with patient: 25-34 minutes Medications reviewed and adjusted accordingly: Yes Anticipated discharge: Home
[2019-09-10] MEDS ORDERED: AMLODIPINE BESYLATE 2.5 MG TABLET PO ONE (10:30)
[2019-09-10] MEDS: FAMOTIDINE INJ/PF 20 MG/2 ML SDV IV SCH ×2 (11:21→22:50)
--- NOTE | 2019-09-10 11:56 | EKG REPORT ---
SEVERITY:- BORDERLINE ECG - SINUS RHYTHM BORDERLINE LEFT AXIS DEVIATION BORDERLINE PROLONGED QT INTERVAL : Confirmed by: Rubens Gramajo MD 10-Sep-2019 11:55:55
--- NOTE | 2019-09-10 16:03 | PDOC PROGRESS REPORT ---
Subjective Progress Note for:: 09/10/19 Subjective:: This is a 74-year-old female with diabetes and significant coronary disease, admitted for acute cholecystitis. The patient today continues to report right upper quadrant abdominal. She denies nausea, vomiting, fevers, chills, shortness of breath, dizziness, orthostasis. Reason For Visit: ACUTE CHOLECYSTITIS,ABDOMINAL PAIN,VOMITING Physical Exam Vital Signs: Temp Pulse Resp BP Pulse Ox 98.0 F 98 16 158/69 H 93 09/10/19 12:00 09/10/19 12:00 09/10/19 12:00 09/10/19 12:00 09/10/19 12:00 Intake & Output 09/09/19 09/10/19 09/11/19 06:59 06:59 06:59 Intake Total 2100 100 Balance 2100 100 Weight 75.4 kg General appearance: PRESENT: no acute distress, cooperative, other - Overweight Head exam: PRESENT: atraumatic, normocephalic Eye exam: PRESENT: EOMI, PERRLA. ABSENT: scleral icterus Mouth exam: PRESENT: moist, neck supple Neck exam: ABSENT: meningismus, tenderness, thyromegaly, tracheal deviation Respiratory exam: PRESENT: unlabored. ABSENT: chest wall tenderness, tachypnea, wheezes Cardiovascular exam: ABSENT: tachycardia Pulses: PRESENT: normal radial pulses Vascular exam: PRESENT: normal capillary refill GI/Abdominal exam: PRESENT: guarding - Right upper quadrant, Shannon's sign, soft, tenderness - Right upper quadrant Rectal exam: PRESENT: deferred Extremities exam: ABSENT: clubbing Musculoskeletal exam: ABSENT: deformity Neurological exam: PRESENT: alert, awake, oriented to person, oriented to place Psychiatric exam: ABSENT: agitated, anxious, depressed Focused psych exam: ABSENT: delusional Skin exam: ABSENT: cyanosis, erythema, jaundice Results Laboratory Results: 09/10/19 05:18 09/10/19 05:18 09/09/19 09/09/19 09/09/19 19:15 19:15 19:15 WBC 17.9 H RBC 4.60 Hgb 14.1 Hct 41.0 MCV 89 MCH 30.6 MCHC 34.3 RDW 14.4 H Plt Count 312 Seg Neutrophils % Not Reportable Sodium 131.0 L Potassium 4.7 Chloride 98 Carbon Dioxide 23 Anion Gap 10 BUN 18 Creatinine 1.16 Est GFR ( Amer) 56 L Glucose 267 H Lactic Acid Calcium 9.1 Magnesium Total Bilirubin 1.1 AST 28 Alkaline Phosphatase 121 Total Protein 7.3 Albumin 3.4 L Triglycerides Cholesterol LDL Cholesterol Direct VLDL Cholesterol HDL Cholesterol Amylase Lipase 41.5 TSH Free T3 pg/mL Urine Color DARK YELLOW Urine Appearance SLIGHTLY-CLOUDY Urine pH 5.0 Ur Specific [place] 1.020 Urine Protein 30 H Urine Glucose (UA) 50 H Urine Ketones NEGATIVE Urine Blood SMALL H Urine RBC (Auto) 4 09/09/19 09/09/19 09/09/19 19:15 19:15 19:15 WBC RBC Hgb Hct MCV MCH MCHC RDW Plt Count Seg Neutrophils % Sodium Potassium Chloride Carbon Dioxide Anion Gap BUN Creatinine Est GFR ( Amer) Glucose Lactic Acid Calcium Magnesium Total Bilirubin AST Alkaline Phosphatase Total Protein Albumin Triglycerides Cholesterol LDL Cholesterol Direct VLDL Cholesterol HDL Cholesterol Amylase 74 Lipase TSH 0.08 L Free T3 pg/mL 2.00 L Urine Color Urine Appearance Urine pH Ur Specific [place] Urine Protein Urine Glucose (UA) Urine Ketones Urine Blood Urine RBC (Auto) 09/10/19 09/10/19 09/10/19 01:13 05:18 05:18 WBC 10.2 RBC 4.00 Hgb 12.2 Hct 35.2 L MCV 88 MCH 30.4 MCHC 34.6 RDW 14.6 H Plt Count 246 Seg Neutrophils % Sodium Potassium Chloride Carbon Dioxide Anion Gap BUN Creatinine Est GFR ( Amer) Glucose Lactic Acid 1.8 1.4 Calcium Magnesium Total Bilirubin AST Alkaline Phosphatase Total Protein Albumin Triglycerides Cholesterol LDL Cholesterol Direct VLDL Cholesterol HDL Cholesterol Amylase Lipase TSH Free T3 pg/mL Urine Color Urine Appearance Urine pH Ur Specific [place] Urine Protein Urine Glucose (UA) Urine Ketones Urine Blood Urine RBC (Auto) 09/10/19 09/10/19 05:18 09:20 WBC RBC Hgb Hct MCV MCH MCHC RDW Plt Count Seg Neutrophils % Sodium 133.0 L Potassium 3.7 D Chloride 104 Carbon Dioxide 23 Anion Gap 6 BUN 15 Creatinine 0.92 Est GFR ( Amer) > 60 Glucose 124 H Lactic Acid 0.9 Calcium 7.8 L Magnesium 1.6 Total Bilirubin AST Alkaline Phosphatase Total Protein Albumin Triglycerides 68 Cholesterol 92.47 LDL Cholesterol Direct 37 VLDL Cholesterol 14.0 HDL Cholesterol 41 Amylase Lipase TSH Free T3 pg/mL Urine Color Urine Appearance Urine pH Ur Specific [place] Urine Protein Urine Glucose (UA) Urine Ketones Urine Blood Urine RBC (Auto) Impressions: Abdomen/Pelvis CT 09/09/19 20:31 IMPRESSION: Findings consistent with cholelithiasis and acute cholecystitis with adjacent wall thickening in the duodenum and the hepatic flexure of the colon. This could be further evaluated with ultrasound or nuclear medicine study Appendix likely within normal limits. No convincing evidence for appendicitis Small amount of free fluid in the pelvis Extensive vascular calcification Moderate hiatal hernia with bilateral basilar atelectasis Assessment & Plan - Diagnosis (1) Acute cholecystitis Is this a current diagnosis for this admission?: Yes - Plan Summary Plan Summary: This is a 74-year-old female with acute cholecystitis. She also has diabetes and a significant heart history. Consultation has been made with Dr. Cardoso to clear her from a cardiac standpoint. I have discussed the case with him personally. He plans to obtain an echocardiogram, but feels that she is overall acceptable risk for surgery. Continue antibiotics. Plan for surgery tomorrow. Risks and benefits were discussed with the patient, informed consent was obtained, and all questions were answered.
--- NOTE | 2019-09-10 16:30 | PDOC CONSULTATION ---
Consultation-Blank Consultation: CARDIOLOGY CONSULTATION by Dr. Tamia Cardoso on 09/10/2019. Patient seen at 12 noon. 60 minutes spent as patient more than 50% time spent in direct patient care. REASON FOR CONSULTATION: Preoperative cardiac risk assessment in patient with history of CAD admitted for cholecystitis take to me for a diagnosis of acute cholecystitis with cholelithiasis. CONSULT REQUESTING PHYSICIAN: [facility], [facility]. HISTORY OF PRESENT ILLNESS: Patient is a 74-year-old female who was admitted with abdominal pain with nausea and vomiting and diagnosed with acute cholecystitis with cholelithiasis and risk for cholecystectomy. Hence cardiac risk assessment requested in view of the patient's history of coronary artery disease. The patient has a past history of coronary artery disease with no history of MA and history of stents in probably the LAD and a stent to the RCA [although the patient does not remember the vessel she says 1 to the front of the heart and 1 to the vessel in the back of the heart]. The first stent was in 2000 and the second was in 2005. Since then the patient has not had any anginal symptoms. She in fact has had several surgeries after that and the last one was a left carotid endarterectomy in 2017 with no untoward events. She denies any chest pain or discomfort. There is no shortness of breath. There is no PND orthopnea. She has a history of hypertension, diabetes mellitus, and hypothyroidism and depression. She has a prior history of TIA versus CVA with no residual effects with left-sided weakness which culminated in the patient having a left carotid endarterectomy. The patient denies any palpitations or syncope. There is no PND orthopnea or leg edema. Note history obtained from the patient who is not very good historian and also with the patient's via telephone. Past Medical History Cardiac Medical History: Reports: Coronary Artery Disease, Hyperlipidema, Hypertension, Peripheral Vascular Disease Denies: Atrial Fibrillation, Congestive Heart Failure, DVT, Myocardial In farction, Pulmonary Embolism Pulmonary Medical History: Denies: Asthma, Chronic Obstructive Pulmonary Disease (COPD) no history of sleep apnea. EENT Medical History: Denies: None, Cataracts, Ears - Hearing aids Neurological Medical History: Denies: Hemorrhagic CVA, Ischemic CVA, Seizures Endocrine Medical History: Reports: Diabetes Mellitus Type 2, Obesity Denies: Diabetes Mellitus Type 1, Hyperthyroidism, Hypothyroidism Renal/ Medical History: Denies: Chronic Kidney Disease, Nephrolithiasis Malignancy Medical History: Reports: None GI Medical History: Denies: Cirrhosis, Crohn's Disease, Gastroesophageal Reflux Disease, Hepatitis, Peptic Ulcer Disease, Ulcerative Colitis Musculoskeltal Medical History: Reports: Arthritis Denies: Gout Skin Medical History: Denies: Eczema, Psoriasis Psychiatric Medical History: Denies: Alcohol Dependency, Substance Abuse, Tobacco Dependency Traumatic Medical History: Reports: None Hematology: Denies: Anemia, Bleeding Tendencies Infectious Medical History: Reports: None Past Surgical History Past Surgical History: Reports: Cardiac Catheterization, Carotid Endarterectomy -probably right, Coronary, and LAD stents, Orthopedic Surgery - Right rotator cuff surgery, Vascular Surgery - Multiple arterial stents to the left lower extremity Social History Information Source: Patient Lives with: Family Smoking Status: Never Smoker Electronic Cigarette use?: No Frequency of Alcohol Use: None Hx Recreational Drug Use: No Drugs: None Hx Prescription Drug Abuse: No - Advance Directive Resuscitation Status: Full Code Surrogate healthcare decision maker:: Alek Elliott. [Patient's ] Family History Family History: CAD, DM, Hyperlipidemia, Hypertension, Malignancy, Other - Peripheral vascular disease Parental Family History Reviewed: Yes Children Family History Reviewed: No Sibling(s) Family History Reviewed.: Yes Medication/Allergy Allergies/Adverse Reactions: No Known Allergies Allergy (Unverified 09/09/19 18:56) Alprazolam [Xanax 0.25 mg Tablet] 0.25 mg PO BID 09/10/19 Amlodipine Besylate [Norvasc 2.5 mg Tablet] 2.5 mg PO DAILY 09/10/19 Aspirin [Aspir-Low] 81 mg PO DAILY 09/10/19 Atorvastatin Calcium [Lipitor 40 mg Tablet] 40 mg PO DAILY 09/10/19 Celecoxib [Celebrex 100 mg Capsule] 100 mg PO Q12 09/10/19 Diclofenac Potassium 50 mg PO Q12 09/10/19 Ezetimibe [Zetia 10 mg Tablet] 10 mg PO DAILY 09/10/19 Gabapentin [Neurontin 100 mg Capsule] 300 mg PO TID 09/10/19 Insulin Glargine,Hum.rec.anlog [Tovita Solosttroy] 0 unit SQ .PER SLIDING SCALE 09/10/19 Levothyroxine Sodium [Synthroid 0.075 mg Tablet] 0.075 mg PO DAILY 09/10/19 Lisinopril [Prinivil 10 mg Tablet] 10 mg PO DAILY 09/10/19 Meloxicam [Mobic] 15 mg PO DAILY 09/10/19 Metoprolol Tartrate [Lopressor 50 mg Tablet] 50 mg PO Q12 09/10/19 Paroxetine HCl [Paxil 20 mg Tablet] 20 mg PO DAILY 09/10/19 Sitagliptin Phos/Metformin HCl [Janumet Xr 50-1,000 mg Tablet] 1 each PO Q12 09/10/19 Review of Systems Constitutional: ABSENT: chills, fever(s) Eyes: ABSENT: visual disturbances, other - Eye pain Ears: ABSENT: hearing changes, other - Ear pain Nose, Mouth, and Throat: ABSENT: headache(s), sore throat Cardiovascular: ABSENT: chest pain, palpitations Respiratory: ABSENT: cough, dyspnea Gastrointestinal: PRESENT: as per HPI, abdominal pain, nausea, vomiting. ABSENT: constipation, diarrhea, hematemesis Genitourinary: ABSENT: dysuria, hematuria. Denies any history of chronic kidney disease. Musculoskeletal: ABSENT: back pain, joint swelling Integumentary: ABSENT: pruritus, rash Neurological: ABSENT: confusion, convulsions, focal weakness, memory loss, syncope. No recurrent symptoms of TIA or CVA. Psychiatric: ABSENT: anxiety, depression [well controlled with medication]. Endocrine: ABSENT: cold intolerance, heat intolerance, polydipsia, polyphagia, polyuria Hematologic/Lymphatic: ABSENT: easy bleeding, easy bruising Allergic/Immunologic: ABSENT: seasonal rhinorrhea Current Medications Acetaminophen (Tylenol 650 Mg Supp) 650 mg MT Q4HP PRN PRN Reason: For headache, pain or fever Stop: 10/10/19 00:11 Acetaminophen (Tylenol 325 Mg Tablet) 650 mg PO Q4HP PRN PRN Reason: For headache, pain or fever Stop: 10/10/19 00:11 Amlodipine Besylate (Norvasc 2.5 Mg Tablet) 2.5 mg PO DAILY [facility] Stop: 10/11/19 09:59 Aspirin (Ecotrin 81 Mg Ec Tablet) 81 mg PO DAILY [facility]IA Stop: 10/11/19 09:59 Atorvastatin Calcium (Lipitor 40 Mg Tablet) 40 mg PO QHS [facility]IA Stop: 10/11/19 21:59 Dextrose (Dextrose Inj 50% Syringe (25 Gm/50 Ml)) 12.5 gm IV PRN PRN; Protocol PRN Reason: FOR BG 50-69 IN ALERT PATIENT Stop: 10/10/19 06:52 Dextrose (Dextrose Inj 50% Syringe (25 Gm/50 Ml)) 25 gm IV PRN PRN; Protocol PRN Reason: See Label Comments Stop: 10/10/19 06:52 Ezetimibe (Zetia 10 Mg Tablet) 10 mg PO DAILY [facility] Stop: 10/11/19 09:59 Famotidine (Pepcid Inj/Pf 20 Mg/2 Ml Sdv) 20 mg IV Q12 [facility] Stop: 10/10/19 09:59 Last Admin: 09/10/19 11:21 Dose: 20 mg Documented by: Gabapentin (Neurontin 100 Mg Capsule) 300 mg PO TID [facility] Stop: 10/10/19 17:59 Last Admin: 09/10/19 17:23 Dose: 300 mg Documented by: Glucagon (Glucagen Inj 1 Mg Vial) 1 mg IM PRN PRN; Protocol PRN Reason: Evaluate for BG < 70 Stop: 10/10/19 00:08 Glucagon (Glucagen Inj 1 Mg Vial) 1 mg SUBCUT PRN PRN; Protocol PRN Reason: Evaluate for BG < 70 Stop: 10/10/19 06:52 Glucose (Glutose 40% Gel 15 Gm Tube) 15 gm PO PRN PRN; Protocol PRN Reason: FOR BG 50-69 IN ALERT PATIENT Stop: 10/10/19 00:08 Glucose (Glutose 40% Gel 15 Gm Tube) 30 gm PO PRN PRN; Protocol PRN Reason: FOR BG < 50 IN ALERT PATIENT Stop: 10/10/19 06:52 Guaifenesin (Robitussin Syrup 200 Mg/10 Ml Ud Cup) 200 mg PO Q4HP PRN PRN Reason: COUGH Stop: 10/10/19 00:11 Heparin Sodium (Porcine) (Heparin Inj 5,000 Units/Ml 1 Ml Vial) 5,000 unit SUBCUT Q8 [facility] Stop: 10/10/19 05:59 Last Admin: 09/10/19 13:58 Dose: Not Given Documented by: Hydralazine HCl (Apresoline Inj/Pf 20 Mg/1 Ml Sdv) 20 mg IV Q4HP PRN PRN Reason: Give For Sbp > 160 / Dbp > 100 Stop: 10/10/19 00:11 Sodium Chloride (Nacl 0.9% 1000 Ml Iv Soln) 1,000 mls @ 125 mls/hr IV .CONTINUOUS PRN PRN Reason: DIZZINESS Stop: 10/09/19 22:56 Last Admin: 09/10/19 00:24 Dose: 125 mls/hr Documented by: Piperacillin Sod/Tazobactam (Sod 3.375 gm/ Sodium Chloride) 100 mls @ 200 mls/hr IV Q6 [facility] Stop: 09/17/19 05:59 Last Infusion: 09/10/19 17:53 Dose: Infused Documented by: Lactated Ringer's (Lactated Ringers 1000 Ml Iv Soln) 1,000 mls @ 125 mls/hr IV CONTINUOUS PRN PRN Reason: THIS MED IS NOT "PRN" Stop: 10/10/19 00:00 Last Admin: 09/10/19 17:27 Dose: 125 mls/hr Documented by: Insulin Human Regular (Humulin R (Pyxis) Insulin 100 Unit/Ml 3ml) 0 - 12 unit SUBCUT [facility]; Protocol Stop: 10/10/19 07:59 Last Admin: 09/10/19 16:52 Dose: Not Given Documented by: Levothyroxine Sodium (Synthroid 0.075 Mg Tablet) 0.075 mg PO Q6AM [facility] Stop: 10/11/19 05:59 Lisinopril (Prinivil 10 Mg Tablet) 10 mg PO DAILY [facility] Stop: 10/11/19 09:59 Lorazepam (Ativan Inj 2 Mg/1 Ml Vial) 1 mg IV Q4HP PRN PRN Reason: ANXIETY/AGITATION Stop: 09/17/19 00:11 Metoprolol Tartrate (Lopressor 50 Mg Tablet) 50 mg PO Q12 [facility] Stop: 10/10/19 21:59 Morphine Sulfate (Morphine 10 Mg/Ml Inj) 2 mg IV Q2HP PRN PRN Reason: FOR PAIN SCALE 1-2 Stop: 09/17/19 00:11 Morphine Sulfate (Morphine 10 Mg/Ml Inj) 3 mg IV Q2HP PRN PRN Reason: FOR PAIN SCALE 3-4 Stop: 09/17/19 00:11 Morphine Sulfate (Morphine 10 Mg/Ml Inj) 4 mg IV Q2HP PRN PRN Reason: PAIN SCALE OF 5 Stop: 09/17/19 00:11 Ondansetron HCl (Zofran Inj/Pf 4 Mg/2 Ml Sdv) 4 mg IV Q4HP PRN PRN Reason: FOR NAUSEA/VOMITING Stop: 10/10/19 00:00 Paroxetine HCl (Paxil 20 Mg Tablet) 20 mg PO DAILY [facility] Stop: 10/11/19 09:59 Sodium Chloride (Saline Flush 2.5 Ml Monoject Prefil Syrin) 2.5 ml IV Q8 [facility] Stop: 10/10/19 05:59 Last Admin: 09/10/19 14:03 Dose: Not Given Documented by: Discontinued Medications Amlodipine Besylate (Norvasc 2.5 Mg Tablet) 2.5 mg PO NOW ONE Stop: 09/10/19 10:31 Last Admin: 09/10/19 11:21 Dose: 2.5 mg Documented by: Sodium Chloride (Nacl 0.9% 1000 Ml Iv Soln) 1,000 mls @ 0 mls/hr IV BOLUS ONE Stop: 09/09/19 20:32 Last Infusion: 09/09/19 22:52 Dose: Infused Documented by: Sodium Chloride (Nacl 0.9% 1000 Ml Iv Soln) 1,000 mls @ 0 mls/hr IV BOLUS ONE Stop: 09/09/19 22:57 Last Infusion: 09/09/19 23:50 Dose: Infused Documented by: Lactated Ringer's (Lactated Ringers 1000 Ml Iv Soln) 1,000 mls @ 167 mls/hr IV CONTINUOUS PRN PRN Reason: THIS MED IS NOT "PRN" Stop: 10/10/19 00:00 Last Admin: 09/10/19 01:49 Dose: 167 mls/hr Documented by: Lisinopril (Prinivil 10 Mg Tablet) 10 mg PO NOW ONE Stop: 09/10/19 09:25 Last Admin: 09/10/19 11:21 Dose: 10 mg Documented by: Metoprolol Tartrate (Lopressor 50 Mg Tablet) 50 mg PO NOW ONE Stop: 09/10/19 09:25 Last Admin: 09/10/19 11:20 Dose: 50 mg Documented by: Morphine Sulfate (Morphine 10 Mg/Ml Inj) 4 mg IV NOW ONE Stop: 09/09/19 20:31 Last Admin: 09/09/19 20:50 Dose: 4 mg Documented by: Ondansetron HCl (Zofran Inj/Pf 4 Mg/2 Ml Sdv) 4 mg IV NOW ONE Stop: 09/09/19 20:32 Last Admin: 09/09/19 20:51 Dose: 4 mg Documented by: Piperacillin Sod/Tazobactam Sod (Zosyn Inj 3.375 Gm Vial) 3.375 gm IV IVBAG (ED) ONE Stop: 09/09/19 22:43 Last Admin: 09/09/19 23:02 Dose: 3.375 gm Documented by: Piperacillin Sod/Tazobactam Sod (Zosyn Inj 3.375 Gm Vial) 3.375 gm IV ASDIR PRN Stop: 09/10/19 01:01 Piperacillin Sod/Tazobactam Sod (Zosyn Inj 3.375 Gm Vial) Confirm Administered Dose 3.375 gm IV .STK-MED ONE Stop: 09/10/19 01:13 Last Admin: 09/10/19 04:31 Dose: Not Given Documented by: PHYSICAL EXAMINATION: The patient is mildly obese. She is well-groomed. At present in no acute distress. Her abdominal pain is well controlled with current analgesics. Selected Entries 09/10/19 12:00 Temperature 98.0 F Temperature Oral Source Pulse Rate 98 Respiratory 16 Rate Blood Pressure 158/69 H [Left Upper Arm ] Blood Pressure 98 Mean [Left Upper Arm] Blood Pressure Supine Position [Left Upper Arm] O2 Sat by Pulse 93 Oximetry Oxygen Delivery Room Air Method ( includes room air) HEAD: Is atraumatic normocephalic. EYES: Pupils are equal round regular reactive to light and accommodation. Extraocular movements are normal. There is no conjunctival pallor. There is no scleral icterus. EARS: X tympanic membranes are intact. External auditory canals are clear. NOSE: There is no deviated nasal septum. There is no inflammation nasal mucous membrane. MOUTH: Mucous membranes of mouth are moist tongue is moist. There is no ulcers. There is no bleeding from the gums. THROAT: There is no redness of the oropharynx. There is no exudates. SKIN: There is no skin rashes. There is no skin lesions. There is no petechia or ecchymosis. NECK: Supple. There is no JVD. Carotids are equal there is no bruit. There is left carotid endarterectomy scar present. There is no goiter. There is no lymphadenopathy. There is no accessory muscles of respiration use. Trachea central. LUNGS: Is clear to auscultation percussion without any rhonchi rales or wheezing. On palpation there is no chest wall tenderness. HEART: S1-S2 is heard. There is no S3 gallop. There is no S4 gallop. There is systolic murmur left sternal border and the apex there is no rub. ABDOMEN: Is soft. There is discomfort on palpating the right upper quadrant. There is no rebound guarding rigidity. Bowel sounds are well heard. There is no hepatosplenomegaly. EXTREMITIES: Femorals are decreased. There is no femoral bruits. Leg pulses are decreased. There is no pedal edema. There is no cyanosis or clubbing. There is no DVT or cellulitis. Capillary refill is normal. THERE is no calf tenderness. FIELD SUPPORT REP: The patient is conscious awake alert oriented x3 with no focal deficits. PSYCHIATRIC: The patient judgment insight are intact her affect is normal. EKG: Shows sinus rhythm. Borderline left axis deviation. Borderline prolonged QT interval. There is minor diffuse nonspecific T changes. Labs- Entire Visit 09/09/19 09/09/19 09/09/19 19:15 19:15 19:15 WBC 17.9 H RBC 4.60 Hgb 14.1 Hct 41.0 MCV 89 MCH 30.6 MCHC 34.3 RDW 14.4 H Plt Count 312 Lymph % (Auto) Not Reportable [place] % (Auto) Not Reportable Eos % (Auto) Not Reportable Baso % (Auto) Not Reportable Absolute Neuts (auto) Not Reportable Absolute Lymphs (auto) Not Reportable Absolute Monos (auto) Not Reportable Absolute Eos (auto) Not Reportable Absolute Basos (auto) Not Reportable Total Counted 100 Seg Neutrophils % Not Reportable Seg Neuts % (Manual) 91 H Lymphocytes % (Manual) 4 L Monocytes % (Manual) 5 Eosinophils % (Manual) 0 Basophils % (Manual) 0 Abs Neuts (Manual) 16.3 H Abs Lymphs (Manual) 0.7 Abs Monocytes (Manual) 0.9 Absolute Eos (Manual) 0.0 Abs Basophils (Manual) 0.0 Toxic Granulation SLIGHT Platelet Comment ADEQUATE Poikilocytosis SLIGHT Anisocytosis SLIGHT Ovalocytes SLIGHT Ramer Cells SLIGHT Sodium 131.0 L Potassium 4.7 Chloride 98 Carbon Dioxide 23 Anion Gap 10 BUN 18 Creatinine 1.16 Est GFR ( Amer) 56 L Est GFR (MDRD) Non-Af 46 L Glucose 267 H POC Glucose Hemoglobin A1c % Lactic Acid Calcium 9.1 Magnesium Total Bilirubin 1.1 Direct Bilirubin 0.2 Neonat Total Bilirubin Not Reportable Neonat Direct Bilirubin Not Reportable Neonat Indirect Bili Not Reportable AST 28 ALT 16 Alkaline Phosphatase 121 Total Protein 7.3 Albumin 3.4 L Triglycerides Cholesterol LDL Cholesterol Direct VLDL Cholesterol HDL Cholesterol Amylase Lipase 41.5 TSH Free T3 pg/mL Urine Color DARK YELLOW Urine Appearance SLIGHTLY-CLOUDY Urine pH 5.0 Ur Specific [place] 1.020 Urine Protein 30 H Urine Glucose (UA) 50 H Urine Ketones NEGATIVE Urine Blood SMALL H Urine Nitrite (Reflex) NEGATIVE Urine Bilirubin NEGATIVE Urine Urobilinogen NEGATIVE Leukocyte Esterase Rfl MODERATE H Urine RBC (Auto) 4 U Hyaline Cast (Auto) 33 Urine Bacteria (Auto) TRACE Urine WBC (Reflex) 23 Squamous Epi Cells Auto 10 Urine Mucus (Auto) FEW Urine Ascorbic Acid NEGATIVE 09/09/19 09/09/19 09/09/19 19:15 19:15 19:15 WBC RBC Hgb Hct MCV MCH MCHC RDW Plt Count Lymph % (Auto) [place] % (Auto) Eos % (Auto) Baso % (Auto) Absolute Neuts (auto) Absolute Lymphs (auto) Absolute Monos (auto) Absolute Eos (auto) Absolute Basos (auto) Total Counted Seg Neutrophils % Seg Neuts % (Manual) Lymphocytes % (Manual) Monocytes % (Manual) Eosinophils % (Manual) Basophils % (Manual) Abs Neuts (Manual) Abs Lymphs (Manual) Abs Monocytes (Manual) Absolute Eos (Manual) Abs Basophils (Manual) Toxic Granulation Platelet Comment Poikilocytosis Anisocytosis Ovalocytes Ramer Cells Sodium Potassium Chloride Carbon Dioxide Anion Gap BUN Creatinine Est GFR ( Amer) Est GFR (MDRD) Non-Af Glucose POC Glucose Hemoglobin A1c % Lactic Acid Calcium Magnesium Total Bilirubin Direct Bilirubin Neonat Total Bilirubin Neonat Direct Bilirubin Neonat Indirect Bili AST ALT Alkaline Phosphatase Total Protein Albumin Triglycerides Cholesterol LDL Cholesterol Direct VLDL Cholesterol HDL Cholesterol Amylase 74 Lipase TSH 0.08 L Free T3 pg/mL 2.00 L Urine Color Urine Appearance Urine pH Ur Specific [place] Urine Protein Urine Glucose (UA) Urine Ketones Urine Blood Urine Nitrite (Reflex) Urine Bilirubin Urine Urobilinogen Leukocyte Esterase Rfl Urine RBC (Auto) U Hyaline Cast (Auto) Urine Bacteria (Auto) Urine WBC (Reflex) Squamous Epi Cells Auto Urine Mucus (Auto) Urine Ascorbic Acid 09/10/19 09/10/19 09/10/19 00:29 01:13 05:18 WBC RBC Hgb Hct MCV MCH MCHC RDW Plt Count Lymph % (Auto) [place] % (Auto) Eos % (Auto) Baso % (Auto) Absolute Neuts (auto) Absolute Lymphs (auto) Absolute Monos (auto) Absolute Eos (auto) Absolute Basos (auto) Total Counted Seg Neutrophils % Seg Neuts % (Manual) Lymphocytes % (Manual) Monocytes % (Manual) Eosinophils % (Manual) Basophils % (Manual) Abs Neuts (Manual) Abs Lymphs (Manual) Abs Monocytes (Manual) Absolute Eos (Manual) Abs Basophils (Manual) Toxic Granulation Platelet Comment Poikilocytosis Anisocytosis Ovalocytes Ramer Cells Sodium Potassium Chloride Carbon Dioxide Anion Gap BUN Creatinine Est GFR ( Amer) Est GFR (MDRD) Non-Af Glucose POC Glucose 152 H Hemoglobin A1c % Lactic Acid 1.8 1.4 Calcium Magnesium Total Bilirubin Direct Bilirubin Neonat Total Bilirubin Neonat Direct Bilirubin Neonat Indirect Bili AST ALT Alkaline Phosphatase Total Protein Albumin Triglycerides Cholesterol LDL Cholesterol Direct VLDL Cholesterol HDL Cholesterol Amylase Lipase TSH Free T3 pg/mL Urine Color Urine Appearance Urine pH Ur Specific [place] Urine Protein Urine Glucose (UA) Urine Ketones Urine Blood Urine Nitrite (Reflex) Urine Bilirubin Urine Urobilinogen Leukocyte Esterase Rfl Urine RBC (Auto) U Hyaline Cast (Auto) Urine Bacteria (Auto) Urine WBC (Reflex) Squamous Epi Cells Auto Urine Mucus (Auto) Urine Ascorbic Acid 09/10/19 09/10/19 09/10/19 05:18 05:18 05:18 WBC 10.2 RBC 4.00 Hgb 12.2 Hct 35.2 L MCV 88 MCH 30.4 MCHC 34.6 RDW 14.6 H Plt Count 246 Lymph % (Auto) [place] % (Auto) Eos % (Auto) Baso % (Auto) Absolute Neuts (auto) Absolute Lymphs (auto) Absolute Monos (auto) Absolute Eos (auto) Absolute Basos (auto) Total Counted Seg Neutrophils % Seg Neuts % (Manual) Lymphocytes % (Manual) Monocytes % (Manual) Eosinophils % (Manual) Basophils % (Manual) Abs Neuts (Manual) Abs Lymphs (Manual) Abs Monocytes (Manual) Absolute Eos (Manual) Abs Basophils (Manual) Toxic Granulation Platelet Comment Poikilocytosis Anisocytosis Ovalocytes Ramer Cells Sodium 133.0 L Potassium 3.7 D Chloride 104 Carbon Dioxide 23 Anion Gap 6 BUN 15 Creatinine 0.92 Est GFR ( Amer) > 60 Est GFR (MDRD) Non-Af > 60 Glucose 124 H POC Glucose Hemoglobin A1c % 7.7 H Lactic Acid Calcium 7.8 L Magnesium 1.6 Total Bilirubin Direct Bilirubin Neonat Total Bilirubin Neonat Direct Bilirubin Neonat Indirect Bili AST ALT Alkaline Phosphatase Total Protein Albumin Triglycerides 68 Cholesterol 92.47 LDL Cholesterol Direct 37 VLDL Cholesterol 14.0 HDL Cholesterol 41 Amylase Lipase TSH Free T3 pg/mL Urine Color Urine Appearance Urine pH Ur Specific [place] Urine Protein Urine Glucose (UA) Urine Ketones Urine Blood Urine Nitrite (Reflex) Urine Bilirubin Urine Urobilinogen Leukocyte Esterase Rfl Urine RBC (Auto) U Hyaline Cast (Auto) Urine Bacteria (Auto) Urine WBC (Reflex) Squamous Epi Cells Auto Urine Mucus (Auto) Urine Ascorbic Acid 09/10/19 09/10/19 09/10/19 06:49 09:20 10:47 WBC RBC Hgb Hct MCV MCH MCHC RDW Plt Count Lymph % (Auto) [place] % (Auto) Eos % (Auto) Baso % (Auto) Absolute Neuts (auto) Absolute Lymphs (auto) Absolute Monos (auto) Absolute Eos (auto) Absolute Basos (auto) Total Counted Seg Neutrophils % Seg Neuts % (Manual) Lymphocytes % (Manual) Monocytes % (Manual) Eosinophils % (Manual) Basophils % (Manual) Abs Neuts (Manual) Abs Lymphs (Manual) Abs Monocytes (Manual) Absolute Eos (Manual) Abs Basophils (Manual) Toxic Granulation Platelet Comment Poikilocytosis Anisocytosis Ovalocytes Jeana Cells Sodium Potassium Chloride Carbon Dioxide Anion Gap BUN Creatinine Est GFR ( Amer) Est GFR (MDRD) Non-Af Glucose POC Glucose 107 89 Hemoglobin A1c % Lactic Acid 0.9 Calcium Magnesium Total Bilirubin Direct Bilirubin Neonat Total Bilirubin Neonat Direct Bilirubin Neonat Indirect Bili AST ALT Alkaline Phosphatase Total Protein Albumin Triglycerides Cholesterol LDL Cholesterol Direct VLDL Cholesterol HDL Cholesterol Amylase Lipase TSH Free T3 pg/mL Urine Color Urine Appearance Urine pH Ur Specific [place] Urine Protein Urine Glucose (UA) Urine Ketones Urine Blood Urine Nitrite (Reflex) Urine Bilirubin Urine Urobilinogen Leukocyte Esterase Rfl Urine RBC (Auto) U Hyaline Cast (Auto) Urine Bacteria (Auto) Urine WBC (Reflex) Squamous Epi Cells Auto Urine Mucus (Auto) Urine Ascorbic Acid 09/10/19 16:34 WBC RBC Hgb Hct MCV MCH MCHC RDW Plt Count Lymph % (Auto) [place] % (Auto) Eos % (Auto) Baso % (Auto) Absolute Neuts (auto) Absolute Lymphs (auto) Absolute Monos (auto) Absolute Eos (auto) Absolute Basos (auto) Total Counted Seg Neutrophils % Seg Neuts % (Manual) Lymphocytes % (Manual) Monocytes % (Manual) Eosinophils % (Manual) Basophils % (Manual) Abs Neuts (Manual) Abs Lymphs (Manual) Abs Monocytes (Manual) Absolute Eos (Manual) Abs Basophils (Manual) Toxic Granulation Platelet Comment Poikilocytosis Anisocytosis Ovalocytes Jeana Cells Sodium Potassium Chloride Carbon Dioxide Anion Gap BUN Creatinine Est GFR ( Amer) Est GFR (MDRD) Non-Af Glucose POC Glucose 89 Hemoglobin A1c % Lactic Acid Calcium Magnesium Total Bilirubin Direct Bilirubin Neonat Total Bilirubin Neonat Direct Bilirubin Neonat Indirect Bili AST ALT Alkaline Phosphatase Total Protein Albumin Triglycerides Cholesterol LDL Cholesterol Direct VLDL Cholesterol HDL Cholesterol Amylase Lipase TSH Free T3 pg/mL Urine Color Urine Appearance Urine pH Ur Specific [place] Urine Protein Urine Glucose (UA) Urine Ketones Urine Blood Urine Nitrite (Reflex) Urine Bilirubin Urine Urobilinogen Leukocyte Esterase Rfl Urine RBC (Auto) U Hyaline Cast (Auto) Urine Bacteria (Auto) Urine WBC (Reflex) Squamous Epi Cells Auto Urine Mucus (Auto) Urine Ascorbic Acid Abdomen/Pelvis CT 09/09/19 20:31 IMPRESSION: Findings consistent with cholelithiasis and acute cholecystitis with adjacent wall thickening in the duodenum and the hepatic flexure of the colon. This could be further evaluated with ultrasound or nuclear medicine study Appendix likely within normal limits. No convincing evidence for appendicitis Small amount of free fluid in the pelvis Extensive vascular calcification Moderate hiatal hernia with bilateral basilar atelectasis IMPRESSION/RECOMMENDATION: 1. Acute cholecystitis with cholelithiasis. Patient is for surgical cholecystectomy. 2. Coronary artery disease history of coronary artery stents. No anginal symptoms. No evidence of acute coronary is syndrome this admission. 3. Hypertension: Slightly elevated due to most likely the patient's current c linical situation. 4. Diabetes mellitus: Continue antidiabetic medication. 5. Hypothyroidism: Continue thyroid replacement. 6. Hyper lipidemia: Continue atorvastatin 7 peripheral vascular disease including stents in the lower extremity arteries and left carotid endarterectomy. Seems to be stable. 8. Systolic murmur: Most likely secondary to mild mitral regurgitation. Will check an echo for diminishing the etiology of the systolic murmur and also LV ejection fraction and wall motion normality for further risk assessment for this cholecystectomy. 9.. History of depression: Seems to be well controlled with current medication. 10. PREOPERATIVE CARDIAC RISK ASSESSMENT/EVALUATION: The patient will be at a low/acceptable cardiac risk for this procedure under general anesthesia. POSTOP we will continue the patient on telemetry and get serial EKGs and enzymes. This is a current opinion of her cardiac risk for this cholecystectomy. Will later check an echo which has been ordered, and if there is a need to re-assess the patient's risk status in light of any new abnormal findings on the echocardiogram. Medications reviewed. Medications and management plan discussed with the attend ing provider on the case. 60 minutes spent as patient with more than 50% time spent in direct patient care. Medical decision making is of high complexity. Will follow. Discussed with the patient and patient's . Addendum: ECHOCARDIOGRAM: Shows the Patient Has Mild LVH, with Normal Wall Motion and Ejection Fraction of 70%. There Is Mild LV Diastolic Dysfunction. There Is Aortic Sclerosis without Stenosis. There Is No Significant Valvular Disease. There Is Trace tricuspid regurgitation. Could not assess right ventricle systolic pressure due to lack of TR jet. There is no mitral stenosis and only trace mitral regurgitation. No pericardial effusion. In view of the above the patient will be at low/acceptable cardiac risk for surgery. As mentioned earlier would get serial EKGs and cardiac enzymes and monitor patient on telemetry postoperatively. [Also perioperatively]. Will follow
[2019-09-10] MEDS: GABAPENTIN 100 MG CAPSULE PO SCH (17:23)
[2019-09-10] MEDS: METOPROLOL TARTRATE 50 MG TABLET PO SCH (22:50)
--- NOTE | 2019-09-10 23:35 | XCELERA REPORT ---
[address] [address] Transthoracic Echocardiogram Report Name: NELLY BELL Age: 74 yrs Gender: Female : 1945 Patient Status: Inpatient Patient Location: [address] [place], [place] [address]A Study Date: 09/10/2019 10:03 PM Height: 61 in Weight: 166 lb BSA: 1.7 m2 Procedure: A two-dimensional transthoracic echocardiogram with color flow and Doppler was performed. The study was technically difficult with many images being suboptimal in quality. Reason For Study: CAD / Murmur ? Preop History: CAD / Murmur ? Preop. Ordering Physician: TAMIA HOWELL Performed By: Thu Vallejo Interpretation Summary The left ventricle is normal in size. There is mild concentric left ventricular hypertrophy. LV EF is 70% Left ventricular systolic function is normal. Doppler measurements suggest impaired left ventricular relaxation, which is associated with grade I/IV or mild diastolic dysfunction The left ventricular wall motion is normal. There is no thrombus. No ASD,VSD,Or PFO seen, The right ventricle is normal in size and function. The right ventricle is not well visualized secondary to technical limitations The right atrium is normal in size The left atrial size is normal. There is no evidence of mitral valve prolapse. There is no vegetation seen on the mitral valve. There is a trace amount of mitral regurgitation There is no aortic valvular vegetation. There is no aortic valve stenosis There is aortic sclerosis without aortic stenosis. There is no LVOT obstruction. No aortic regurgitation is present. There is no tricuspid stenosis. There is a trace amount of tricuspid regurgitation Tricuspid regurgitation jet envelope not well defined to measure RV systolic pressure accurately. There is no pulmonic valvular stenosis. There is no pulmonic valvular regurgitation. The aortic root is normal size. The inferior vena cava appeared normal and decreased > 50% with respiration (RAP 5-10 mmHg) There is no pericardial effusion. MMode/2D Measurements & Calculations RVDd: 3.3 cm LVIDd: 3.4 cm FS: 39.0 % Ao root diam: 3.1 cm IVSd: 1.2 cm LVIDs: 2.1 cm EDV(Teich): 47.4 ml Ao root area: 7.4 cm2 LVPWd: 1.2 cm ESV(Teich): 13.9 ml LA dimension: 2.9 cm EF(Teich): 70.6 % Doppler Measurements & Calculations MV E max miah: MV P1/2t max miah: Ao V2 max: LV V1 max P.8 cm/sec 86.0 cm/sec 143.1 cm/sec 3.5 mmHg MV A max miah: MV P1/2t: 77.6 msec Ao max PG: LV V1 max: 106.5 cm/sec MVA(P1/2t): 2.8 cm2 8.2 mmHg 93.5 cm/sec MV E/A: 0.74 MV dec slope: 324.5 cm/sec2 MV dec time: 0.30 sec PA V2 max: MV P1/2t-pr_phl: 75.6 cm/sec 77.6 msec PA max P.3 mmHg Left Ventricle The left ventricle is normal in size. There is mild concentric left ventricular hypertrophy. LV EF is 70%. Left ventricular systolic function is normal. Doppler measurements suggest impaired left ventricular relaxation, which is associated with grade I/IV or mild diastolic dysfunction. The left ventricular wall motion is normal. There is no thrombus. No ASD,VSD,Or PFO seen,. Right Ventricle The right ventricle is normal in size and function. The right ventricle is not well visualized secondary to technical limitations. Atria The right atrium is normal in size. The left atrial size is normal. Mitral Valve There is no evidence of mitral valve prolapse. There is no vegetation seen on the mitral valve. There is no mitral valve stenosis. There is a trace amount of mitral regurgitation. Aortic Valve There is no aortic valvular vegetation. There is no aortic valve stenosis. There is aortic sclerosis without aortic stenosis. There is no LVOT obstruction. No aortic regurgitation is present. Tricuspid Valve There is no tricuspid stenosis. There is a trace amount of tricuspid regurgitation. Tricuspid regurgitation jet envelope not well defined to measure RV systolic pressure accurately. Pulmonic Valve There is no pulmonic valvular stenosis. There is no pulmonic valvular regurgitation. Great Vessels The aortic root is normal size. The inferior vena cava appeared normal and decreased > 50% with respiration (RAP 5-10 mmHg). Effusions There is no pericardial effusion. : TAMIA HOWELL Lakshmi
[2019-09-11] MEDS: HEPARIN SOD (PORCINE) 5,000 UNIT/ML 1 ML VIAL SUBCUT SCH ×3 (05:16→21:57)
[2019-09-11 05:22] LABS: HEMATOCRIT 32.1 % (36.0-47.0); HEMOGLOBIN 11.1 g/dL (12.0-15.5); MEAN CORPUSCULAR HEMOGLOBIN 30.5 pg (27.0-33.4); MEAN CORPUSCULAR HGB CONC 34.5 g/dL (32.0-36.0); MEAN CORPUSCULAR VOLUME 88 fl (80-97); PLATELET COUNT 239 10^3/uL (150-450); RED BLOOD COUNT 3.63 10^6/uL (3.72-5.28); RED CELL DISTRIBUTION WIDTH 14.5 % (11.5-14.0)
[2019-09-11] MEDS: LEVOTHYROXINE SODIUM 0.075 MG TABLET PO SCH (05:27)
[2019-09-11 05:46] LABS: ANION GAP 5 (5-19); BLOOD UREA NITROGEN 13 mg/dL (7-20); CARBON DIOXIDE 23 mmol/L (22-30); CHLORIDE 107 mmol/L (98-107); GLUCOSE 80 mg/dL (75-110); POTASSIUM 3.7 mmol/L (3.6-5.0)
[2019-09-11] MEDS: PIPERACILLIN SODIUM/TAZOBACTAM 3.375 GM in NORMAL SALINE 100 ML IV SCH ×3 (05:57→17:58)
[2019-09-11] MEDS: INSULIN REG, HUMAN 100 UNIT/ML 3 ML VIAL (PYX) SUBCUT SCH ×4 (08:53→22:48)
[2019-09-11] MEDS ORDERED: DEXAMETHASONE SOD PHOSPHATE INJ 4 MG/1 ML VIAL ONE (09:21)
[2019-09-11] MEDS ORDERED: SUCCINYLCHOLINE CHLORIDE INJ 200 MG/10 ML VIAL ONE (09:21)
[2019-09-11] MEDS ORDERED: ROCURONIUM BROMIDE INJ 50 MG/5 ML VIAL IV ONE (09:21)
[2019-09-11] MEDS ORDERED: ONDANSETRON HCL INJ/PF 4 MG/2 ML SDV ONE (09:21)
[2019-09-11] MEDS ORDERED: GLYCOPYRROLATE 1 MG/5 ML VIAL ONE (09:21)
[2019-09-11] MEDS ORDERED: NEOSTIGMINE METHYLSULFATE 10 MG/10 ML VIAL ONE (09:21)
[2019-09-11] MEDS: ASPIRIN 81 MG TABLET, ENT COATED PO SCH (09:54)
[2019-09-11] MEDS: GABAPENTIN 100 MG CAPSULE PO SCH ×3 (09:59→17:59)
[2019-09-11] MEDS ORDERED: AMLODIPINE BESYLATE 2.5 MG TABLET PO SCH (10:00)
[2019-09-11] MEDS: FAMOTIDINE INJ/PF 20 MG/2 ML SDV IV SCH ×2 (10:12→21:57)
[2019-09-11] MEDS: METOPROLOL TARTRATE 50 MG TABLET PO SCH ×2 (10:12→21:57)
[2019-09-11] MEDS: LISINOPRIL 10 MG TABLET PO SCH (10:12)
--- NOTE | 2019-09-11 11:01 | PDOC PROGRESS REPORT ---
Subjective Progress Note for:: 09/11/19 Subjective:: This is a 74-year-old female with diabetes and significant coronary disease, admitted for acute cholecystitis. The patient today continues to report right upper quadrant abdominal. She denies nausea, vomiting, fevers, chills, shortness of breath, dizziness, orthostasis. Reason For Visit: ACUTE CHOLECYSTITIS,ABDOMINAL PAIN,VOMITING Physical Exam Vital Signs: Temp Pulse Resp BP Pulse Ox 98.1 F 70 17 150/61 H 93 09/11/19 09:56 09/11/19 09:56 09/11/19 09:56 09/11/19 09:56 09/11/19 09:56 Intake & Output 09/10/19 09/11/19 09/12/19 06:59 06:59 06:59 Intake Total 2100 2400 100 Balance 2100 2400 100 Weight 75.4 kg 79.8 kg General appearance: PRESENT: cooperative, obese Head exam: PRESENT: atraumatic, normocephalic Eye exam: PRESENT: EOMI, PERRLA. ABSENT: scleral icterus Mouth exam: PRESENT: moist, neck supple Neck exam: ABSENT: meningismus, tenderness, thyromegaly, tracheal deviation Respiratory exam: PRESENT: unlabored. ABSENT: chest wall tenderness, tachypnea Cardiovascular exam: ABSENT: tachycardia Vascular exam: ABSENT: pallor GI/Abdominal exam: PRESENT: guarding - Right upper quadrant, Shannon's sign, tenderness - Right upper quadrant. ABSENT: distended, soft Rectal exam: PRESENT: deferred Extremities exam: ABSENT: clubbing Musculoskeletal exam: ABSENT: deformity Neurological exam: PRESENT: alert, awake, oriented to person, oriented to place, oriented to time, oriented to situation, CN II-XII grossly intact Psychiatric exam: ABSENT: agitated, anxious, depressed Focused psych exam: ABSENT: delusional Skin exam: ABSENT: cyanosis, erythema, jaundice Results Laboratory Results: 09/11/19 04:48 09/11/19 04:48 09/11/19 09/11/19 04:48 04:48 WBC 7.0 RBC 3.63 L Hgb 11.1 L Hct 32.1 L MCV 88 MCH 30.5 MCHC 34.5 RDW 14.5 H Plt Count 239 Sodium 134.5 L Potassium 3.7 Chloride 107 Carbon Dioxide 23 Anion Gap 5 BUN 13 Creatinine 1.06 Est GFR ( Amer) > 60 Glucose 80 Calcium 8.0 L Magnesium 1.7 Impressions: Abdomen/Pelvis CT 09/09/19 20:31 IMPRESSION: Findings consistent with cholelithiasis and acute cholecystitis with adjacent wall thickening in the duodenum and the hepatic flexure of the colon. This could be further evaluated with ultrasound or nuclear medicine study Appendix likely within normal limits. No convincing evidence for appendicitis Small amount of free fluid in the pelvis Extensive vascular calcification Moderate hiatal hernia with bilateral basilar atelectasis Assessment & Plan - Diagnosis (1) Acute cholecystitis Is this a current diagnosis for this admission?: Yes - Plan Summary Plan Summary: This is a 74-year-old female with acute cholecystitis. She also has diabetes and a significant heart history. Consultation has been made with Dr. Cardoso to clear her from a cardiac standpoint. I have discussed the case with him personally. Continue antibiotics. Plan for surgery today. Risks and benefits were discussed with the patient, informed consent was obtained, and all questions were answered.
[2019-09-11] MEDS ORDERED: FENTANYL CITRATE INJ/PF 250 MCG/5 ML AMPULE ONE (11:15)
[2019-09-11] MEDS ORDERED: MIDAZOLAM 2 MG/2 ML INJ ONE (11:15)
[2019-09-11] MEDS ORDERED: PROPOFOL INJ 200 MG/20 ML VIAL IV ONE (11:15)
[2019-09-11] MEDS ORDERED: BUPIVACAINE HCL 0.25 % INJ/PF (2.5 MG/1 ML) 30 ML VIAL ONE (12:53)
[2019-09-11] MEDS ORDERED: FENTANYL CITRATE INJ/PF 100 MCG/2 ML AMPUL IV PRN ×3 (13:11)
[2019-09-11] MEDS ORDERED: DIPHENHYDRAMINE HCL 50 MG/ML VIAL IV PRN (13:11)
[2019-09-11] MEDS ORDERED: MEPERIDINE HCL/PF INJ 25 MG/1 ML DISP.SYRIN IV PRN (13:11)
[2019-09-11] MEDS ORDERED: OXYCODONE-ACETAMINOPHEN 5-325 MG TABLET PO PRN ×2 (13:11)
[2019-09-11] MEDS ORDERED: PROMETHAZINE HCL INJ 25 MG/1 ML VIAL IV PRN ×2 (13:11)
[2019-09-11] MEDS ORDERED: HYDROCODONE/ACETAMINOPHEN 10-325 MG TABLET PO PRN (14:36)
[2019-09-11] MEDS: PAROXETINE HCL 20 MG TABLET PO SCH (15:47)
[2019-09-11] MEDS: EZETIMIBE 10 MG TABLET PO SCH (15:47)
--- NOTE | 2019-09-11 16:46 | PDOC PROGRESS REPORT ---
Subjective Progress Note for:: 09/11/19 Subjective:: The patient just returned from anesthesia. The nurse called me to report that she was hypothermic and hypertensive. She was also confused. Oxygen saturation was normal as was her pulse rate. Reason For Visit: ACUTE CHOLECYSTITIS,ABDOMINAL PAIN,VOMITING Physical Exam Vital Signs: Temp Pulse Resp BP Pulse Ox 97.4 F 67 16 137/76 H 98 09/11/19 15:12 09/11/19 15:12 09/11/19 15:12 09/11/19 15:12 09/11/19 15:12 Intake & Output 09/10/19 09/11/19 09/12/19 06:59 06:59 06:59 Intake Total 2100 2400 2723 Output Total 1005 Balance 2100 2400 1718 Weight 75.4 kg 79.8 kg General appearance: PRESENT: no acute distress, well-developed, well-nourished. ABSENT: cooperative - Extremely somnolent Head exam: PRESENT: atraumatic, normocephalic Respiratory exam: PRESENT: clear to auscultation radha - Anteriorly, symmetrical, unlabored. ABSENT: rales, rhonchi, tachypnea, wheezes Cardiovascular exam: PRESENT: RRR, +S1, +S2 GI/Abdominal exam: PRESENT: other - Surgical dressing and surgical drain in place. I did not examine the abdomen today Rectal exam: PRESENT: deferred Extremities exam: ABSENT: pedal edema Musculoskeletal exam: PRESENT: normal inspection. ABSENT: deformity Neurological exam: PRESENT: altered - Somnolent. ABSENT: alert, awake Psychiatric exam: PRESENT: flat affect. ABSENT: agitated, anxious Focused psych exam: PRESENT: other - Somnolent as noted above Skin exam: PRESENT: dry. ABSENT: rash, warm - The patient is slightly cool to the touch. Results Laboratory Results: 09/11/19 04:48 09/11/19 04:48 09/11/19 09/11/19 04:48 04:48 WBC 7.0 RBC 3.63 L Hgb 11.1 L Hct 32.1 L MCV 88 MCH 30.5 MCHC 34.5 RDW 14.5 H Plt Count 239 Sodium 134.5 L Potassium 3.7 Chloride 107 Carbon Dioxide 23 Anion Gap 5 BUN 13 Creatinine 1.06 Est GFR ( Amer) > 60 Glucose 80 Calcium 8.0 L Magnesium 1.7 Impressions: Abdomen/Pelvis CT 09/09/19 20:31 IMPRESSION: Findings consistent with cholelithiasis and acute cholecystitis with adjacent wall thickening in the duodenum and the hepatic flexure of the colon. This could be further evaluated with ultrasound or nuclear medicine study Appendix likely within normal limits. No convincing evidence for appendicitis Small amount of free fluid in the pelvis Extensive vascular calcification Moderate hiatal hernia with bilateral basilar atelectasis Assessment and Plan - Diagnosis (1) Acute cholecystitis Is this a current diagnosis for this admission?: Yes Plan: 09/10/2019 Patient with acute cholecystitis. Continue antibiotics. Planned cholecystectomy today as soon as she is cleared surgically. 09/11/2019 the patient underwent successful cholecystectomy. There is a surgical drain in place. The gallbladder was sent to pathology. Further management per surgery (2) Leukocytosis Qualifiers: Leukocytosis type: other Qualified Code(s): D72.828 - Other elevated white blood cell count Is this a current diagnosis for this admission?: Yes Plan: 09/10/2019 Secondary to acute cholecystitis. With antibiotics her white blood cell count is normal today. 09/11/2019 Resolved with antibiotic therapy (3) Vomiting Qualifiers: Vomiting type: unspecified Vomiting Intractability: non-intractable Nausea presence: with nausea Qualified Code(s): R11.2 - Nausea with vomiting, unspecified Is this a current diagnosis for this admission?: Yes Plan: 09/10/2019 Secondary to acute cholecystitis. No vomiting this morning. 09/11/2019 Resolved (4) Hyperglycemia due to type 2 diabetes mellitus Qualifiers: Diabetes mellitus nursing home insulin use: with nursing home use Qualified Code(s): E11.65 - Type 2 diabetes mellitus with hyperglycemia; Z79.4 - detention (current) use of insulin Is this a current diagnosis for this admission?: Yes Plan: 09/10/2019 Hemoglobin A1c is 7.7. The patient exhibits good control. When she is on an oral diet will resume her Janumet , long-acting insulin (Toujeo) and diabetic diet. While she is n.p.o. she is having Accu-Cheks 4 times a day with sliding scale coverage. 09/11/2019 Accu-Cheks have been excellent. Continue current regimen (Accu-Cheks and sliding scale). (5) Hypertension Qualifiers: Hypertension type: essential hypertension Qualified Code(s): I10 - Essential (primary) hypertension Is this a current diagnosis for this admission?: Yes Plan: 09/10/2019 Her blood pressures are up. This is a combination of the pain, anxiety and the fact that she has not taken her medicines yet today. She normally takes amlodipine 2.5 mg daily, lisinopril 10 mg daily and metoprolol tartrate 50 mg twice daily. We will resume these medications and monitor her blood pressures. 09/11/2019 When the patient arrived on the fourth floor her systolic blood pressure was greater than 190. She was given a dose of her as needed hydralazine IV. In addition she was hypothermic. She did take all of her antihypertensive medications this morning. We will continue to monitor her blood pressure and we may need to adjust her medications. (6) Hyperlipidemia Is this a current diagnosis for this admission?: Yes Plan: 09/10/2019 The patient has an excellent lipid panel. Continue the Zetia 10 mg daily and atorvastatin 40 mg daily. (7) Coronary artery disease Qualifiers: Coronary Disease-Associated Artery/Lesion type: [place] artery [place] vs. transplanted heart: nondalton heart Associated angina: without angina Qualified Code(s): I25.10 - Atherosclerotic heart disease of nondalton coronary artery without angina pectoris Is this a current diagnosis for this admission?: Yes Plan: 09/10/2019 Patient has a history of coronary disease. In addition to the medications outlined above she takes an aspirin 81 mg daily. She has not reported any chest pain, shortness of breath or diaphoresis. I have ordered an EKG to assess for cardiac clearance for her cholecystectomy. Unless there is anything untoward I believe she will be cleared for her cholecystectomy from a medical standpoint. 09/11/2019 Stable. Please also see cardiology note. Ejection fraction was normal by echocardiogram from yesterday. (8) Anxiety and depression Is this a current diagnosis for this admission?: Yes Plan: 09/11/2019 No change We will continue her benzodiazepine therapy with Xanax as well as her Paxil 20 mg daily. (9) Arthritis Is this a current diagnosis for this admission?: Yes Plan: 09/10/2019 The medication list indicates that the patient takes Mobic 15 mg every day as well as diclofenac 50 mg twice a day and Celebrex 100 mg twice a day. She is on 3 different nonsteroidal anti-inflammatories. Consider consolidating therapy. Will defer this to her primary care provider. She is also on Neurontin and this may be related to diabetic neuropathy. 09/11/2019 We will discussed the use of multiple NSAIDs as it affects the stomach. You may try to encourage her to streamline this regimen. (10) Diabetic neuropathy associated with type 2 diabetes mellitus Qualifiers: Diabetes mellitus complication detail: diabetic polyneuropathy Qualified Code(s): E11.42 - Type 2 diabetes mellitus with diabetic polyneuropathy Is this a current diagnosis for this admission?: Yes Plan: 09/10/2019 Continue Neurontin. Patient likely has diabetic neuropathy. (11) Hyponatremia Is this a current diagnosis for this admission?: Yes Plan: 09/10/2019 Serum sodium is just below the normal limit. Not clinically significant at this time. We will continue to monitor with laboratory studies. 09/11/2019 Continue current regimen. He continues to improve slowly. (12) Hypocalcemia Is this a current diagnosis for this admission?: Yes Plan: 09/10/2019 The patient exhibits low serum calcium. I will add calcium and vitamin D supplement postoperatively. 09/11/2019 Very mild. Calcium with vitamin D added as noted above. (13) Hypothermia Qualifiers: Encounter type: initial encounter Qualified Code(s): T68.XXXA - Hypothermia, initial encounter Is this a current diagnosis for this admission?: Yes Plan: 09/11/2019 the patient was hypothermic when she arrived on the fourth floor. We will utilize a bear hugger for now. We will continue to monitor her tempe rature closely. Reassess tomorrow. Reviewing her vital signs she does occasionally have temperatures less than 98 degrees. - Plan Summary Summary: Patient will be admitted to medical floor where she received routine supportive and symptomatic cares. She will be placed on IV Zosyn. She will receive IV fluids as both maintenance and replacement for presumed mild hypovolemia due to decreased oral intake and vomiting. Dr. Brown will be consulted for surgical management. She will use morphine sulfate 2 to 4 mg IV every 2 hours as needed for pain utilizing a sliding scale for dosing. She will have Ativan 1 mg IV every 4 hours as needed for anxiety or restlessness. Before meals and at bedtime Accu-Cheks to be performed and sliding scale insulin will be used for hyperglycemia with a hypoglycemic protocol also in place. CBCs, metabolic profiles, magnesium levels, hemoglobin A1c's, lipid profiles, thyroid profiles and liver function studies will be ordered as needed. Patient will be on a clear liquid diet with diabetic and cardiac restrictions. - Time Time Spent with patient: 15-24 minutes Medications reviewed and adjusted accordingly: Yes Anticipated discharge: Home
--- NOTE | 2019-09-11 18:13 | Progress Note ---
Provider Note Provider Note: CARDIOLOGY PROGRESS NOTE by Dr. Tamia Springer on 09/11/2019. SUBJECTIVE: The patient underwent uneventful cholecystectomy. At present patient drowsy but still oriented x3. She denies any chest pain or discomfort. There is no shortness of breath palpitations or PND orthopnea or leg edema. The patient appears to be clinically stable. PHYSICAL EXAMINATION: The patient mildly obese in no acute distress. Selected Entries 09/11/19 18:03 Temperature 97.5 F Temperature Oral Source Pulse Rate 90 Respiratory 17 Rate Blood Pressure 126/50 H Blood Pressure 75 Mean BP Location Right Arm BP Position Supine O2 Sat by Pulse 96 Oximetry Oxygen Flow 2.00 Rate Oxygen Delivery Nasal Cannula Method HEAD: Is atraumatic normocephalic. EYES: Pupils are equal round regular reactive to light and accommodation. Extraocular movements are normal. There is no conjunctival pallor. There is no scleral icterus. EARS: X tympanic membranes are intact. External auditory canals are clear. NOSE: There is no deviated nasal septum. There is no inflammation nasal mucous membrane. MOUTH: Mucous membranes of mouth are moist tongue is moist. There is no ulcers. There is no bleeding from the gums. THROAT: There is no redness of the oropharynx. There is no exudates. SKIN: There is no skin rashes. There is no skin lesions. There is no petechia or ecchymosis. NECK: Supple. There is no JVD. Carotids are equal there is no bruit. There is left carotid endarterectomy scar present. There is no goiter. There is no lymphadenopathy. There is no accessory muscles of respiration use. Trachea central. LUNGS: Is clear to auscultation percussion without any rhonchi rales or wheezing. On palpation there is no chest wall tenderness. HEART: S1-S2 is heard. There is no S3 gallop. There is no S4 gallop. There is systolic murmur left sternal border and the apex there is no rub. ABDOMEN: Is soft. There is discomfort on palpating the right upper quadrant. There is no rebound guarding rigidity. Bowel sounds are well heard. There is no hepatosplenomegaly. EXTREMITIES: Femorals are decreased. There is no femoral bruits. Leg pulses are decreased. There is no pedal edema. There is no cyanosis or clubbing. There is no DVT or cellulitis. Capillary refill is normal. THERE is no calf tenderness. DUMP GROUNDS CHECKER: The patient is conscious awake alert oriented x3 with no focal deficits. PSYCHIATRIC: The patient judgment insight are intact her affect is normal. Labs- All tests 24 hr 09/10/19 09/11/19 09/11/19 21:28 04:48 04:48 WBC 7.0 RBC 3.63 L Hgb 11.1 L Hct 32.1 L MCV 88 MCH 30.5 MCHC 34.5 RDW 14.5 H Plt Count 239 Sodium 134.5 L Potassium 3.7 Chloride 107 Carbon Dioxide 23 Anion Gap 5 BUN 13 Creatinine 1.06 Est GFR ( Amer) > 60 Est GFR (MDRD) Non-Af 51 L Glucose 80 POC Glucose 91 Calcium 8.0 L Magnesium 1.7 09/11/19 09/11/19 06:33 15:54 WBC RBC Hgb Hct MCV MCH MCHC RDW Plt Count Sodium Potassium Chloride Carbon Dioxide Anion Gap BUN Creatinine Est GFR ( Amer) Est GFR (MDRD) Non-Af Glucose POC Glucose 78 82 Calcium Magnesium Abdomen/Pelvis CT 09/09/19 20:31 IMPRESSION: Findings consistent with cholelithiasis and acute cholecystitis with adjacent wall thickening in the duodenum and the hepatic flexure of the colon. This could be further evaluated with ultrasound or nuclear medicine study Appendix likely within normal limits. No convincing evidence for appendicitis Small amount of free fluid in the pelvis Extensive vascular calcification Moderate hiatal hernia with bilateral basilar atelectasis IMPRESSION/RECOMMENDATION: 1. Acute cholecystitis with cholelithiasis. S/p cholecystectomy. 2. Coronary artery disease history of coronary artery stents. No anginal symptoms. No evidence of acute coronary is syndrome this admission. Will check EKG and troponin I in the a.m. 3. Hypertension: Slightly elevated due to most likely the patient's current clinical situation. 4. Diabetes mellitus: Continue antidiabetic medication. 5. Hypothyroidism: Continue thyroid replacement. 6. Hyper lipidemia: Continue atorvastatin 7 peripheral vascular disease including stents in the lower extremity arteries and left carotid endarterectomy. Seems to be stable. 8. Systolic murmur: Most likely' flow murmur' since no significant valvular disease noted. 9.. History of depression: Seems to be well controlled with current medicatio n.. Medications reviewed. Medical regimen and management plan discussed with attending physician. Medical decision making is of moderate complexity. 40 minutes spent as patient more than 50% time spent in direct patient care. I have rediscussed the echo findings with the patient. Will follow.
[2019-09-11] MEDS: ATORVASTATIN CALCIUM 40 MG TABLET PO SCH (21:57)
[2019-09-12] MEDS: PIPERACILLIN SODIUM/TAZOBACTAM 3.375 GM in NORMAL SALINE 100 ML IV SCH ×5 (00:09→23:05)
[2019-09-12] MEDS: LEVOTHYROXINE SODIUM 0.075 MG TABLET PO SCH (05:26)
[2019-09-12] MEDS: HEPARIN SOD (PORCINE) 5,000 UNIT/ML 1 ML VIAL SUBCUT SCH ×3 (05:26→22:11)
[2019-09-12 05:31] LABS: HEMATOCRIT 34.3 % (36.0-47.0); HEMOGLOBIN 11.8 g/dL (12.0-15.5); MEAN CORPUSCULAR HEMOGLOBIN 29.9 pg (27.0-33.4); MEAN CORPUSCULAR HGB CONC 34.4 g/dL (32.0-36.0); MEAN CORPUSCULAR VOLUME 87 fl (80-97); PLATELET COUNT 281 10^3/uL (150-450); RED BLOOD COUNT 3.94 10^6/uL (3.72-5.28); RED CELL DISTRIBUTION WIDTH 14.8 % (11.5-14.0); WHITE BLOOD COUNT 6.1 10^3/uL (4.0-10.5)
[2019-09-12 05:53] LABS: ANION GAP 8 (5-19); BLOOD UREA NITROGEN 22 mg/dL (7-20); CARBON DIOXIDE 20 mmol/L (22-30); CHLORIDE 105 mmol/L (98-107); GLUCOSE 247 mg/dL (75-110); POTASSIUM 3.9 mmol/L (3.6-5.0)
--- NOTE | 2019-09-12 06:14 | Operative Report ---
Nonrecallable Operative Report DATE OF SURGERY: 09/11/19 PREOPERATIVE DIAGNOSIS: Acute cholecystitis POSTOPERATIVE DIAGNOSIS: Acute, gangrenous cholecystitis OPERATION: Laparoscopic cholecystectomy SURGEON: ANDERS ENCISO ANESTHESIA: GA TISSUE REMOVED OR ALTERED: Gallbladder COMPLICATIONS: None apparent ESTIMATED BLOOD LOSS: 100 cc PROCEDURE: Drains/implants: 1. 15 [place] round Delvin drain in the gallbladder fossa. 2. Surgicel in the gallbladder fossa. Procedure in detail: After informed consent was obtained, the patient was brought to the operating room and laid in the supine position. The area of the abdomen was prepped and draped in a normal sterile fashion. A supraumbilical incision was created with a 15 blade scalpel. Dissection was carried through the subcutaneous tissues using sharp and blunt dissection. The linea alba fascia was incised sharply, the abdomen was entered sharply. The balloon trocar was inserted, and pneumoperitoneum was achieved. A subxiphoid 5 mm port was then placed under direct laparoscopic visualization. 2 more 5 mm ports were placed in the right upper quadrant in similar fashion. Atraumatic graspers were placed through the 5 mm ports. The gallbladder was acutely inflamed and gangrenous. The gallbladder was retracted cephalad. Adhesions were taken down around the gallbladder. The infundibulum was reached. There was a dense inflammatory reaction, however dissection was undertaken. The cystic duct and cystic artery were visualized. The triangle of [place]ot was opened using blunt dissection. The cystic artery was clipped and cut with laparoscopic instruments, after the critical view of safety was obtained. The cystic duct appeared to dilated to accommodate laparoscopic clips. Secondary to this the infundibulum was divided and a PDS Endoloop was secured at the infundibulum/cystic duct junction. Once this was completed, the remainder of the gallbladder was removed from the liver using a mixture of blunt dissection and electrocautery. There was a posterior branch of the cystic artery that was clipped. Once the gallbladder was completely freed, it was placed into an Endo Catch bag and removed through the supraumbilical port. The camera was then reinserted, and the abdomen was inspected. There was some bleeding from the liver bed. This was cauterized, and a piece of Surgicel was left in place. The abdomen was then copiously irrigated and suctioned until the effluent was clear. The hilum and the liver bed was then again inspected. At this time it was found to be free of any leakage of blood or bile. A 15 [place] round Delvin drain was left in the gallbladder fossa due to the dense inflammatory reaction and gangrenous cholecystitis. Next, attention was turned to closure of the abdomen. Gas insufflation was removed via a filtration system. The 5 mm trochars were removed, as well as the supraumbilical trocar. The supraumbilical fascia was then closed using 0 Vicryl suture in [id number] fashion under direct vision. The overlying skin was closed using 4-0 Vicryl Rapide suture in subcuticular fashion. Dressings were placed, and the procedure was concluded. All sponge, instrument, and needle counts were correct x2. Condition: Stable.
[2019-09-12 07:51] LABS: ALBUMIN 2.1 g/dL (3.5-5.0); ALKALINE PHOSPHATASE 347 U/L (38-126); ASPARTATE AMINO TRANSFERASE 70 U/L (14-36); BILIRUBIN,DIRECT 0.9 mg/dL (0.0-0.4); BILIRUBIN,TOTAL 1.8 mg/dL (0.2-1.3); TOTAL PROTEIN 5.1 g/dL (6.3-8.2)
--- NOTE | 2019-09-12 10:17 | PDOC PROGRESS REPORT ---
Subjective Progress Note for:: 09/12/19 Subjective:: Feel better after her operation. Tolerating a diet. Reason For Visit: ACUTE CHOLECYSTITIS,ABDOMINAL PAIN,VOMITING Physical Exam Vital Signs: Temp Pulse Resp BP Pulse Ox 97.8 F 87 16 134/60 H 91 L 09/11/19 23:48 09/11/19 23:48 09/11/19 23:48 09/11/19 23:48 09/11/19 23:48 Intake & Output 09/11/19 09/12/19 09/13/19 06:59 06:59 06:59 Intake Total 2400 4343 Output Total 1155 Balance 2400 3188 Weight 79.8 kg 79.1 kg General appearance: PRESENT: no acute distress, cooperative Respiratory exam: PRESENT: clear to auscultation radha Cardiovascular exam: PRESENT: RRR GI/Abdominal exam: PRESENT: other - Soft, nondistended, mild diffuse tenderness without peritoneal signs. Drain output is nonbilious. There is some leakage around the drain exit site. Results Laboratory Results: 09/12/19 05:22 09/12/19 05:22 09/12/19 09/12/19 09/12/19 05:22 05:22 05:22 WBC 6.1 RBC 3.94 Hgb 11.8 L Hct 34.3 L MCV 87 MCH 29.9 MCHC 34.4 RDW 14.8 H Plt Count 281 Sodium 132.6 L Potassium 3.9 Chloride 105 Carbon Dioxide 20 L Anion Gap 8 BUN 22 H Creatinine 1.09 Est GFR ( Amer) > 60 Glucose 247 H Calcium 8.0 L Magnesium 1.8 Total Bilirubin 1.8 H AST 70 H Alkaline Phosphatase 347 H Total Protein 5.1 L Albumin 2.1 L 09/12/19 05:22 Troponin I 0.013 Impressions: Abdomen/Pelvis CT 09/09/19 20:31 IMPRESSION: Findings consistent with cholelithiasis and acute cholecystitis with adjacent wall thickening in the duodenum and the hepatic flexure of the colon. This could be further evaluated with ultrasound or nuclear medicine study Appendix likely within normal limits. No convincing evidence for appendicitis Small amount of free fluid in the pelvis Extensive vascular calcification Moderate hiatal hernia with bilateral basilar atelectasis Assessment & Plan - Diagnosis (1) Acute cholecystitis Is this a current diagnosis for this admission?: Yes Plan: Status post laparoscopic cholecystectomy. Patient looks well but her LFTs have increased from preop. Would like to see its trend prior to discharge. Will repeat her LFTs in the morning. Patient is tolerating a diet and therefore will Hep-Lock her IV. Encourage ambulation.
[2019-09-12] MEDS: INSULIN REG, HUMAN 100 UNIT/ML 3 ML VIAL (PYX) SUBCUT SCH ×4 (10:43→22:11)
[2019-09-12] MEDS: METOPROLOL TARTRATE 50 MG TABLET PO SCH ×2 (10:44→22:12)
[2019-09-12] MEDS: EZETIMIBE 10 MG TABLET PO SCH (10:44)
[2019-09-12] MEDS: FAMOTIDINE INJ/PF 20 MG/2 ML SDV IV SCH ×2 (10:44→22:11)
[2019-09-12] MEDS: PAROXETINE HCL 20 MG TABLET PO SCH (10:44)
[2019-09-12] MEDS: LISINOPRIL 10 MG TABLET PO SCH (10:44)
[2019-09-12] MEDS: ASPIRIN 81 MG TABLET, ENT COATED PO SCH (10:44)
[2019-09-12] MEDS: AMLODIPINE BESYLATE 5 MG TABLET PO SCH (10:44)
[2019-09-12] MEDS: GABAPENTIN 100 MG CAPSULE PO SCH ×3 (10:45→19:03)
[2019-09-12] MEDS ORDERED: ACETAMINOPHEN 325 MG TABLET PO PRN (15:18)
--- NOTE | 2019-09-12 15:26 | PDOC PROGRESS REPORT ---
Subjective Progress Note for:: 09/12/19 Subjective:: Patient is a 74-year-old female with past medical history of CAD, hypertension, hyperlipidemia, PVD, DM 2, and obesity who is Postop day #1 laparoscopic cholecystectomy. Patient was seen on morning rounds. She was found resting in bed, comfortably, on room air. She reports continued abdominal discomfort, although, does admit to resolution of nausea nd vomiting. Tolerating diet well. She denies fever, chills, chest pain, palpitations, dyspnea, orthopnea. She has no other questions or concerns at this time. No concerns per nursing. Reason For Visit: ACUTE CHOLECYSTITIS,ABDOMINAL PAIN,VOMITING Physical Exam Vital Signs: Temp Pulse Resp BP Pulse Ox 97.8 F 87 16 134/60 H 91 L 09/11/19 23:48 09/11/19 23:48 09/11/19 23:48 09/11/19 23:48 09/11/19 23:48 Intake & Output 09/11/19 09/12/19 09/13/19 06:59 06:59 06:59 Intake Total 2400 4343 Output Total 1155 Balance 2400 3188 Weight 79.8 kg 79.1 kg General appearance: PRESENT: no acute distress, cooperative, obese, well- developed, well-nourished Head exam: PRESENT: atraumatic, normocephalic Eye exam: PRESENT: conjunctiva pink, EOMI, PERRLA. ABSENT: scleral icterus Ear exam: PRESENT: normal external ear exam Mouth exam: PRESENT: moist, tongue midline Respiratory exam: PRESENT: clear to auscultation radha, symmetrical, unlabored. ABSENT: rales, rhonchi, wheezes Cardiovascular exam: PRESENT: RRR, +S1, +S2. ABSENT: diastolic murmur, rubs, systolic murmur Pulses: PRESENT: normal dorsalis pedis pul Vascular exam: PRESENT: normal capillary refill GI/Abdominal exam: PRESENT: normal bowel sounds, soft, tenderness, other - ED drain. ABSENT: distended, guarding, mass, organolmegaly, rebound Rectal exam: PRESENT: deferred Extremities exam: PRESENT: full ROM. ABSENT: calf tenderness, clubbing, pedal edema Neurological exam: PRESENT: alert, awake, oriented to person, oriented to place, oriented to time, oriented to situation, CN II-XII grossly intact. ABSENT: motor sensory deficit Psychiatric exam: PRESENT: appropriate affect, normal mood. ABSENT: homicidal ideation, suicidal ideation Skin exam: PRESENT: dry, intact, warm. ABSENT: cyanosis, rash Results Laboratory Results: 09/12/19 05:22 09/12/19 05:22 09/12/19 09/12/19 09/12/19 05:22 05:22 05:22 WBC 6.1 RBC 3.94 Hgb 11.8 L Hct 34.3 L MCV 87 MCH 29.9 MCHC 34.4 RDW 14.8 H Plt Count 281 Sodium 132.6 L Potassium 3.9 Chloride 105 Carbon Dioxide 20 L Anion Gap 8 BUN 22 H Creatinine 1.09 Est GFR ( Amer) > 60 Glucose 247 H Calcium 8.0 L Magnesium 1.8 Total Bilirubin 1.8 H AST 70 H Alkaline Phosphatase 347 H Total Protein 5.1 L Albumin 2.1 L 09/12/19 05:22 Troponin I 0.013 Impressions: Abdomen/Pelvis CT 09/09/19 20:31 IMPRESSION: Findings consistent with cholelithiasis and acute cholecystitis with adjacent wall thickening in the duodenum and the hepatic flexure of the colon. This could be further evaluated with ultrasound or nuclear medicine study Appendix likely within normal limits. No convincing evidence for appendicitis Small amount of free fluid in the pelvis Extensive vascular calcification Moderate hiatal hernia with bilateral basilar atelectasis Assessment and Plan - Diagnosis (1) Acute cholecystitis Is this a current diagnosis for this admission?: Yes Plan: Status post laparoscopic cholecystectomy. LFTs have increased from preop. Patient is clinically improved with decreased abdominal discomfort, nausea and vomiting. Tolerating oral intake. We will continue IV Zosyn. Medically stable for discharge once cleared by surgery. (2) Anxiety and depression Is this a current diagnosis for this admission?: Yes Plan: We will continue her benzodiazepine therapy with Xanax as well as her Paxil 20 mg daily. (3) Arthritis Is this a current diagnosis for this admission?: Yes Plan: Currently doing well without NSAIDs. Continue prn tylenol and home dose gabapentin. Currently receiving prn [place] for lap samantha. Continue nonpharmacological interventions. Recommend PCP reduce number of NSAIDs prescribed (currently on Mobic, Celebrex, Motrin) (4) Coronary artery disease Qualifiers: Coronary Disease-Associated Artery/Lesion type: [place] artery [place] vs. transplanted heart: [place] heart Associated angina: without angina Qualified Code(s): I25.10 - Atherosclerotic heart disease of [place] coronary artery without angina pectoris Is this a current diagnosis for this admission?: Yes Plan: Stable. Ejection fraction was normal by echocardiogram. Cardiology consulted for surgical clearance. (5) Diabetic neuropathy associated with type 2 diabetes mellitus Qualifiers: Diabetes mellitus complication detail: diabetic polyneuropathy Qualified Code(s): E11.42 - Type 2 diabetes mellitus with diabetic polyneuropathy Is this a current diagnosis for this admission?: Yes Plan: Continue Neurontin. Patient likely has diabetic neuropathy (6) Hyperglycemia due to type 2 diabetes mellitus Qualifiers: Diabetes mellitus correction insulin use: with correction use Qualified Code(s): E11.65 - Type 2 diabetes mellitus with hyperglycemia; Z79.4 - extermination supervisor (current) use of insulin Is this a current diagnosis for this admission?: Yes Plan: Hemoglobin A1c is 7.7. Holding oral medications while admitted. Patient is placed on a consistent carb diet. Accu-Cheks before meals and at bedtime with Humalog for sliding scale coverage. Hypoglycemia protocol in place. Registered dietitian senior health educator consulted. (7) Hyperlipidemia Is this a current diagnosis for this admission?: Yes Plan: The patient has an excellent lipid panel. Continue the Zetia 10 mg daily and atorvastatin 40 mg daily. (8) Hypertension Qualifiers: Hypertension type: essential hypertension Qualified Code(s): I10 - Essential (primary) hypertension Is this a current diagnosis for this admission?: Yes Plan: Improved blood pressure control today. Continue home medication regiment of amlodipine, lisinopril, metoprolol. Continue IV hydralazine as needed for blood pressure control. Continue adequate pain control. Cardiac diet. (9) Hypocalcemia Is this a current diagnosis for this admission?: Yes Plan: Very mild. Calcium with vitamin D added as noted above. (10) Hyponatremia Is this a current diagnosis for this admission?: Yes (11) Hypothermia Qualifiers: Encounter type: initial encounter Qualified Code(s): T68.XXXA - Hypothermia, initial encounter Is this a current diagnosis for this admission?: Yes Plan: During Postoperative period. Now resolved. (12) Leukocytosis Qualifiers: Leukocytosis type: other Qualified Code(s): D72.828 - Other elevated white blood cell count Is this a current diagnosis for this admission?: Yes Plan: Resolved. (13) Vomiting Qualifiers: Vomiting type: unspecified Vomiting Intractability: non-intractable Nausea presence: with nausea Qualified Code(s): R11.2 - Nausea with vomiting, unspecified Is this a current diagnosis for this admission?: Yes Plan: Resolved - Time Time Spent with patient: 35 or more minutes Medications reviewed and adjusted accordingly: Yes Anticipated discharge: Home Within: within 24 hours
--- NOTE | 2019-09-12 17:57 | Progress Note ---
Provider Note Provider Note: CARDIOLOGY PROGRESS NOTE by Dr. Tamia Cardoso on 09/12/2019. SUBJECTIVE: The patient denies any chest pain or discomfort. There is no nausea vomiting. She is having no severe abdominal pain. There is no palpitations. There is no shortness of breath PND orthopnea. There is no TIA CVA symptoms. The patient is tolerating diet. Note that the patient's liver function tests have gone up and hence the patient is being observed to see the trend of the LFTs. PHYSICAL EXAMINATION: The patient is mildly obese in no acute distress. Vital Signs: Temperature is 97.4 F. Patient's pulse is 66 bpm. Her blood pressure is 143/77, respiratory rate is 16/min. O2 sats are 100% on room air. HEAD: Is atraumatic normocephalic. EYES: Pupils are equal round regular reactive to light and accommodation. Extraocular movements are normal. There is no conjunctival pallor. There is no scleral icterus. EARS: X tympanic membranes are intact. External auditory canals are clear. NOSE: There is no deviated nasal septum. There is no inflammation nasal mucous membrane. MOUTH: Mucous membranes of mouth are moist tongue is moist. There is no ulcers. There is no bleeding from the gums. THROAT: There is no redness of the oropharynx. There is no exudates. SKIN: There is no skin rashes. There is no skin lesions. There is no petechia or ecchymosis. NECK: Supple. There is no JVD. Carotids are equal there is no bruit. There is left carotid endarterectomy scar present. There is no goiter. There is no lymphadenopathy. There is no accessory muscles of respiration use. Trachea central. LUNGS: Is clear to auscultation percussion without any rhonchi rales or wheezing. On palpation there is no chest wall tenderness. HEART: S1-S2 is heard. There is no S3 gallop. There is no S4 gallop. There is systolic murmur left sternal border and the apex there is no rub. ABDOMEN: Is soft. There is discomfort on palpating the right upper quadrant. There is no rebound guarding rigidity. Bowel sounds are well heard. There is no hepatosplenomegaly. EXTREMITIES: Femorals are decreased. There is no femoral bruits. Leg pulses are decreased. There is no pedal edema. There is no cyanosis or clubbing. There is no DVT or cellulitis. Capillary refill is normal. THERE is no calf tenderness. LEARNING AND DEVELOPMENT OFFICER: The patient is conscious awake alert oriented x3 with no focal deficits. PSYCHIATRIC: The patient judgment insight are intact her affect is normal. Labs- All tests 24 hr 09/11/19 09/12/19 09/12/19 22:17 05:22 05:22 WBC 6.1 RBC 3.94 Hgb 11.8 L Hct 34.3 L MCV 87 MCH 29.9 MCHC 34.4 RDW 14.8 H Plt Count 281 Sodium 132.6 L Potassium 3.9 Chloride 105 Carbon Dioxide 20 L Anion Gap 8 BUN 22 H Creatinine 1.09 Est GFR ( Amer) > 60 Est GFR (MDRD) Non-Af 49 L Glucose 247 H POC Glucose 200 H Calcium 8.0 L Magnesium 1.8 Total Bilirubin Direct Bilirubin Neonat Total Bilirubin Neonat Direct Bilirubin Neonat Indirect Bili AST ALT Alkaline Phosphatase Troponin I Total Protein Albumin 09/12/19 09/12/19 09/12/19 05:22 05:22 06:37 WBC RBC Hgb Hct MCV MCH MCHC RDW Plt Count Sodium Potassium Chloride Carbon Dioxide Anion Gap BUN Creatinine Est GFR ( Amer) Est GFR (MDRD) Non-Af Glucose POC Glucose 246 H Calcium Magnesium Total Bilirubin 1.8 H Direct Bilirubin 0.9 H Neonat Total Bilirubin Not Reportable Neonat Direct Bilirubin Not Reportable Neonat Indirect Bili Not Reportable AST 70 H ALT 36 H Alkaline Phosphatase 347 H Troponin I 0.013 Total Protein 5.1 L Albumin 2.1 L 09/12/19 09/12/19 11:57 16:06 WBC RBC Hgb Hct MCV MCH MCHC RDW Plt Count Sodium Potassium Chloride Carbon Dioxide Anion Gap BUN Creatinine Est GFR ( Amer) Est GFR (MDRD) Non-Af Glucose POC Glucose 357 H 311 H Calcium Magnesium Total Bilirubin Direct Bilirubin Neonat Total Bilirubin Neonat Direct Bilirubin Neonat Indirect Bili AST ALT Alkaline Phosphatase Troponin I Total Protein Albumin Abdomen/Pelvis CT 09/09/19 20:31 IMPRESSION: Findings consistent with cholelithiasis and acute cholecystitis with adjacent wall thickening in the duodenum and the hepatic flexure of the colon. This could be further evaluated with ultrasound or nuclear medicine study Appendix likely within normal limits. No convincing evidence for appendicitis Small amount of free fluid in the pelvis Extensive vascular calcification Moderate hiatal hernia with bilateral basilar atelectasis EKG: Sinus rhythm. Borderline left axis deviation. No acute changes. IMPRESSION/RECOMMENDATION: 1. Acute cholecystitis with cholelithiasis. S/p cholecystectomy. 2. Coronary artery disease history of coronary artery stents. No anginal symptoms. No evidence of acute coronary is syndrome this admission. The patient's troponin I is negative. And the EKG shows no acute changes. And stable coronary artery disease. 3. Mildly elevated liver function test. The patient's LFTs are being trended. 4. Hypertension: Slightly elevated due to most likely the patient's current clinical situation. 5. Diabetes mellitus: Continue antidiabetic medication. 6. Hypothyroidism: Continue thyroid replacement. 7. Hyper lipidemia: Continue atorvastatin 8 peripheral vascular disease including stents in the lower extremity arteries and left carotid endarterectomy. Seems to be stable. 9. Systolic murmur: Most likely' flow murmur' since no significant valvular d isease noted. 10.. History of depression: Seems to be well controlled with current medication.. Medications reviewed. Medical regimen and management plan discussed with attending physician. Medical decision making is of moderate complexity. 40 minutes spent as patient more than 50% time spent in direct patient care. I have rediscussed the echo findings with the patient. Will follow.
[2019-09-12] MEDS: ATORVASTATIN CALCIUM 40 MG TABLET PO SCH (22:11)
[2019-09-13 05:33] LABS: ALBUMIN 2.2 g/dL (3.5-5.0); ALKALINE PHOSPHATASE 251 U/L (38-126); ASPARTATE AMINO TRANSFERASE 44 U/L (14-36); BILIRUBIN,DIRECT 0.3 mg/dL (0.0-0.4); BILIRUBIN,TOTAL 0.9 mg/dL (0.2-1.3); BLOOD UREA NITROGEN 21 mg/dL (7-20); CALCIUM 8.2 mg/dL (8.4-10.2); CARBON DIOXIDE 24 mmol/L (22-30); CHLORIDE 110 mmol/L (98-107); GLUCOSE 99 mg/dL (75-110); POTASSIUM 3.7 mmol/L (3.6-5.0); TOTAL PROTEIN 5.2 g/dL (6.3-8.2)
[2019-09-13 05:40] LABS: ANION GAP 2 (5-19)
[2019-09-13] MEDS: LEVOTHYROXINE SODIUM 0.075 MG TABLET PO SCH (05:43)
[2019-09-13] MEDS: HEPARIN SOD (PORCINE) 5,000 UNIT/ML 1 ML VIAL SUBCUT SCH (05:43)
[2019-09-13] MEDS: PIPERACILLIN SODIUM/TAZOBACTAM 3.375 GM in NORMAL SALINE 100 ML IV SCH (05:43)
--- NOTE | 2019-09-13 07:22 | EKG REPORT ---
SEVERITY:- BORDERLINE ECG - SINUS RHYTHM BORDERLINE LEFT AXIS DEVIATION CONSIDER ANTERIOR INFARCT BORDERLINE PROLONGED QT INTERVAL : Confirmed by: Leighann Macias 13-Sep-2019 07:21:32
[2019-09-13] MEDS: INSULIN REG, HUMAN 100 UNIT/ML 3 ML VIAL (PYX) SUBCUT SCH (08:23)
[2019-09-13] MEDS: FAMOTIDINE INJ/PF 20 MG/2 ML SDV IV SCH (09:30)
[2019-09-13] MEDS: AMLODIPINE BESYLATE 5 MG TABLET PO SCH (09:31)
[2019-09-13] MEDS: PAROXETINE HCL 20 MG TABLET PO SCH (09:31)
[2019-09-13] MEDS: LISINOPRIL 10 MG TABLET PO SCH (09:32)
[2019-09-13] MEDS: ASPIRIN 81 MG TABLET, ENT COATED PO SCH (09:32)
[2019-09-13] MEDS: METOPROLOL TARTRATE 50 MG TABLET PO SCH (09:32)
[2019-09-13] MEDS: GABAPENTIN 100 MG CAPSULE PO SCH (09:33)
--- NOTE | 2019-09-13 09:38 | PDOC PROGRESS REPORT ---
Subjective Progress Note for:: 09/13/19 Reason For Visit: ACUTE CHOLECYSTITIS,ABDOMINAL PAIN,VOMITING Physical Exam Vital Signs: Temp Pulse Resp BP Pulse Ox 97.3 F 61 16 141/52 H 93 09/13/19 07:18 09/13/19 07:18 09/13/19 07:18 09/13/19 07:18 09/13/19 07:18 Intake & Output 09/12/19 09/13/19 09/14/19 06:59 06:59 06:59 Intake Total 4343 2290 Output Total 1155 1505 Balance 3188 785 Weight 79.1 kg 79 kg Results Laboratory Results: 09/12/19 05:22 09/13/19 04:43 09/13/19 04:43 Sodium 135.5 L Potassium 3.7 Chloride 110 H Carbon Dioxide 24 Anion Gap 2 L BUN 21 H Creatinine 1.12 Est GFR ( Amer) 58 L Glucose 99 Calcium 8.2 L Total Bilirubin 0.9 AST 44 H Alkaline Phosphatase 251 H Total Protein 5.2 L Albumin 2.2 L 09/12/19 05:22 Troponin I 0.013 Impressions: Abdomen/Pelvis CT 09/09/19 20:31 IMPRESSION: Findings consistent with cholelithiasis and acute cholecystitis with adjacent wall thickening in the duodenum and the hepatic flexure of the colon. This could be further evaluated with ultrasound or nuclear medicine study Appendix likely within normal limits. No convincing evidence for appendicitis Small amount of free fluid in the pelvis Extensive vascular calcification Moderate hiatal hernia with bilateral basilar atelectasis Assessment & Plan - Diagnosis (1) Acute cholecystitis Is this a current diagnosis for this admission?: Yes - Plan Summary Plan Summary: This is a 74-year-old female status post laparoscopic cholecystectomy for gangrenous acute cholecystitis. The patient is doing well today. She complains of some discomfort, but overall she feels better. She is eating without diffi culty. Her labs are normalizing. She is okay for discharge from a surgical standpoint. [place] 10/325 mg p.o. every 6 hours as needed for pain as an outpatient. Follow-up with me in 7 to 10 days at [facility] for removal of her ED drain. Nurses will teach the patient how to empty the drain at home.
--- NOTE | 2019-09-13 10:00 | Progress Note ---
Provider Note Provider Note: CARDIOLOGY PROGRESS NOTE by Dr. Tamia Cardoso on 09/13/2019. SUBJECTIVE: The patient denies any chest pain or discomfort. There is no shortness of breath. There is no PND orthopnea. There is no leg edema. The patient's appears to be clinically very dehydrated. There is no nausea vomiting. She denies any palpitations. There is no TIA CVA symptoms. PHYSICAL EXAMINATION: The patient is mildly obese. In no acute distress. Selected Entries 09/13/19 10:27 Temperature 97.4 F Temperature Oral Source Pulse Rate 63 Respiratory 16 Rate Blood Pressure 152/46 H Blood Pressure 81 Mean BP Location Left Arm BP Position Sitting O2 Sat by Pulse 91 L Oximetry Oxygen Delivery Room Air Method HEAD: Is atraumatic normocephalic. EYES: Pupils are equal round regular reactive to light and accommodation. Extraocular movements are normal. There is no conjunctival pallor. There is no scleral icterus. EARS: X tympanic membranes are intact. External auditory canals are clear. NOSE: There is no deviated nasal septum. There is no inflammation nasal mucous membrane. MOUTH: Mucous membranes of mouth and tongue are dry.. There is no ulcers. There is no bleeding from the gums. THROAT: There is no redness of the oropharynx. There is no exudates. SKIN: There is no skin rashes. There is no skin lesions. There is no petechia or ecchymosis. NECK: Supple. There is no JVD. Carotids are equal there is no bruit. There is left carotid endarterectomy scar present. There is no goiter. There is no lymphadenopathy. There is no accessory muscles of respiration use. Trachea central. LUNGS: Is clear to auscultation percussion without any rhonchi rales or wheezing. On palpation there is no chest wall tenderness. HEART: S1-S2 is heard. There is no S3 gallop. There is no S4 gallop. There is systolic murmur left sternal border and the apex there is no rub. ABDOMEN: Is soft. There is discomfort on palpating the right upper quadrant. There is no rebound guarding rigidity. Bowel sounds are well heard. There is no hepatosplenomegaly. The site of cholecystectomy dressing is clean and dry. EXTREMITIES: Femorals are decreased. There is no femoral bruits. Leg pulses are decreased. There is no pedal edema. There is no cyanosis or clubb ing. There is no DVT or cellulitis. Capillary refill is normal. THERE is no calf tenderness. [employer]: The patient is conscious awake alert oriented x3 with no focal deficits. PSYCHIATRIC: The patient judgment insight are intact her affect is normal. Clinically the patient appears to be dehydrated. Labs- All tests 24 hr 09/13/19 09/13/19 09/13/19 04:43 06:31 10:27 Sodium 135.5 L Potassium 3.7 Chloride 110 H Carbon Dioxide 24 Anion Gap 2 L BUN 21 H Creatinine 1.12 Est GFR ( Amer) 58 L Est GFR (MDRD) Non-Af 48 L Glucose 99 POC Glucose 94 89 Calcium 8.2 L Total Bilirubin 0.9 Direct Bilirubin 0.3 Neonat Total Bilirubin Not Reportable Neonat Direct Bilirubin Not Reportable Neonat Indirect Bili Not Reportable AST 44 H ALT 28 Alkaline Phosphatase 251 H Total Protein 5.2 L Albumin 2.2 L Abdomen/Pelvis CT 09/09/19 20:31 IMPRESSION: Findings consistent with cholelithiasis and acute cholecystitis with adjacent wall thickening in the duodenum and the hepatic flexure of the colon. This could be further evaluated with ultrasound or nuclear medicine study Appendix likely within normal limits. No convincing evidence for appendicitis Small amount of free fluid in the pelvis Extensive vascular calcification Moderate hiatal hernia with bilateral basilar atelectasis IMPRESSION/RECOMMENDATION: 1. Acute cholecystitis with cholelithiasis. S/p cholecystectomy. 2. Coronary artery disease history of coronary artery stents. No anginal symptoms. No evidence of acute coronary is syndrome this admission. The patient's troponin I is negative. And the EKG shows no acute changes. And stable coronary artery disease. 3. Mildly elevated liver function test. The patient's LFTs are coming down. 4. Acute renal insufficiency secondary to dehydration. Would recommend giving the patient 1 L of IV fluids. 5. Hypertension: Slightly elevated due to most likely the patient's current clinical situation. 6. Diabetes mellitus: Continue antidiabetic medication. 7. Hypothyroidism: Continue thyroid replacement. 8. Hyper lipidemia: Continue atorvastatin 9 peripheral vascular disease including stents in the lower extremity arteries and left carotid endarterectomy. Seems to be stable. 10. Systolic murmur: Most likely' flow murmur' since no significant valvular disease noted. 11.. History of depression: Seems to be well controlled with current medication.. Medications reviewed. Medical regimen and management plan discussed with the attending provider on the case. The patient will be hydrated and will follow up with her primary care physician once discharged. Medical decision making is of moderate complexity. Cardiac status is stable. Will sign off. The patient will be seen in the office as a follow-up for a cardiac condition. Will sign off.
[2019-09-13] MEDS ORDERED: NORMAL SALINE 1000 ML 1,000 ML IV ONE ×2 (10:15→11:45)
--- NOTE | 2019-09-13 12:16 | PDOC DISCHARGE SUMMARY ---
Impression - Admit/DC Date/PCP Admission Date/Primary Care Provider: 09/09/19 23:48 YARY SAMUELS PA-C Discharge Date: 09/13/19 - Discharge Diagnosis (1) Acute cholecystitis Is this a current diagnosis for this admission?: Yes (2) Anxiety and depression Is this a current diagnosis for this admission?: Yes (3) Arthritis Is this a current diagnosis for this admission?: Yes (4) Coronary artery disease Is this a current diagnosis for this admission?: Yes (5) Diabetic neuropathy associated with type 2 diabetes mellitus Is this a current diagnosis for this admission?: Yes (6) Hyperglycemia due to type 2 diabetes mellitus Is this a current diagnosis for this admission?: Yes (7) Hyperlipidemia Is this a current diagnosis for this admission?: Yes (8) Hypertension Is this a current diagnosis for this admission?: Yes (9) Hypocalcemia Is this a current diagnosis for this admission?: Yes (10) Hyponatremia Is this a current diagnosis for this admission?: Yes (11) Hypothermia Is this a current diagnosis for this admission?: Yes (12) Leukocytosis Is this a current diagnosis for this admission?: Yes (13) Vomiting Is this a current diagnosis for this admission?: Yes - Additional Information Resuscitation Status: Full Code Discharge Diet: Cardiac, Diabetic Discharge Activity: Activity As Tolerated, Balance Activity w/Rest, Slowly Increase Activity Referrals: YARY SAMUELS PA-C [Primary Care Provider] - ANDERS BRUNSON MD [ACTIVE STAFF] - (s/p chilango singh 09/[address] Brunson in 1 week.) Prescriptions: Hydrocodone/Acetaminophen [Galax 10-325 mg Tablet] 1 tab PO Q6HP PRN #15 tablet PRN Reason: Home Medications: RX: Alprazolam [Xanax 0.25 mg Tablet] 0.25 mg PO BID 09/10/19 RX: Amlodipine Besylate [Norvasc 2.5 mg Tablet] 2.5 mg PO DAILY 09/10/19 RX: Aspirin [Aspir-Low] 81 mg PO DAILY 09/10/19 RX: Atorvastatin Calcium [Lipitor 40 mg Tablet] 40 mg PO DAILY 09/10/19 RX: Ezetimibe [Zetia 10 mg Tablet] 10 mg PO DAILY 09/10/19 RX: Gabapentin [Neurontin 100 mg Capsule] 300 mg PO TID 09/10/19 RX: Insulin Glargine,Hum.rec.anlog [Duarte Arteaga] 0 unit SQ .PER SLIDING SCALE 09/10/19 RX: Levothyroxine Sodium [Synthroid 0.075 mg Tablet] 0.075 mg PO DAILY 09/10/19 RX: Lisinopril [Prinivil 10 mg Tablet] 10 mg PO DAILY 09/10/19 RX: Metoprolol Tartrate [Lopressor 50 mg Tablet] 50 mg PO Q12 09/10/19 RX: Paroxetine HCl [Paxil 20 mg Tablet] 20 mg PO DAILY 09/10/19 RX: Sitagliptin Phos/Metformin HCl [Janumet Xr 50-1,000 mg Tablet] 1 each PO Q12 09/10/19 Hydrocodone/Acetaminophen [Galax 10-325 mg Tablet] 1 tab PO Q6HP PRN #15 tablet 09/13/19 RX: Acetaminophen [Tylenol 325 mg Tablet] 650 mg PO Q4HP PRN tablet 09/13/19 History of Present Illiness History of Present Illness: NELLY BELL is a 74 year old female Hospital Course Hospital Course: (1) Acute cholecystitis Status post laparoscopic cholecystectomy. LFTs have increased from preop; now trending down. Patient is clinically improved with decreased abdominal discomfort, nausea and vomiting. Tolerating oral intake. Patient is discharged home with ED drain in place. She is been educated on care. We will follow-up with Dr. Brunson next week for removal. (2) Anxiety and depression Continue home dose Xanax as well as her Paxil 20 mg daily. (3) Arthritis Currently doing well without NSAIDs. Continue prn tylenol and home dose gabapentin. Currently receiving prn Galax for lap samantha. Continue nonpharmacological interventions. Recommend PCP reduce number of NSAIDs prescribed (currently on Mobic, Celebrex, Motrin) (4) Coronary artery disease Stable. Ejection fraction was normal by echocardiogram. Cardiology consulted for surgical clearance. (5) Diabetic neuropathy associated with type 2 diabetes mellitus Continue Neurontin. Patient likely has diabetic neuropathy (6) Hyperglycemia due to type 2 diabetes mellitus Hemoglobin A1c is 7.7. Resume outpatient medication regimen. (7) Hyperlipidemia The patient has an excellent lipid panel. Continue the Zetia 10 mg daily and atorvastatin 40 mg daily. (8) Hypertension Continue home medication regiment of amlodipine, lisinopril, metoprolol. (9) Hypocalcemia Very mild. Recommend continued OTC Calcium with vitamin D supplementation (10) Hyponatremia Improved; not clinically significant (11) Hypothermia During Postoperative period. Now resolved. (12) Leukocytosis Resolved. (13) Vomiting Resolved Physical Exam Vital Signs: Temp Pulse Resp BP Pulse Ox 97.3 F 61 16 141/52 H 93 09/13/19 07:18 09/13/19 07:18 09/13/19 07:18 09/13/19 07:18 09/13/19 07:18 Intake & Output 09/12/19 09/13/19 09/14/19 06:59 06:59 06:59 Intake Total 4343 2390 Output Total 1155 1505 Balance 3188 885 Weight 79.1 kg 79 kg General appearance: PRESENT: no acute distress, cooperative, obese, well- developed, well-nourished Head exam: PRESENT: atraumatic, normocephalic Eye exam: PRESENT: conjunctiva pink, EOMI, PERRLA. ABSENT: scleral icterus Mouth exam: PRESENT: moist, tongue midline Respiratory exam: PRESENT: clear to auscultation radha, symmetrical, unlabored. ABSENT: rales, rhonchi, wheezes Cardiovascular exam: PRESENT: RRR, +S1, +S2. ABSENT: diastolic murmur, rubs, systolic murmur Pulses: PRESENT: normal dorsalis pedis pul Vascular exam: PRESENT: normal capillary refill GI/Abdominal exam: PRESENT: normal bowel sounds, soft, other - P drain. ABSENT: distended, guarding, mass, organolmegaly, rebound, tenderness Rectal exam: PRESENT: deferred Extremities exam: PRESENT: full ROM. ABSENT: calf tenderness, clubbing, pedal edema Musculoskeletal exam: PRESENT: ambulatory Neurological exam: PRESENT: alert, awake, oriented to person, oriented to place, oriented to time, oriented to situation, CN II-XII grossly intact. ABSENT: motor sensory deficit Psychiatric exam: PRESENT: appropriate affect, normal mood. ABSENT: homicidal ideation, suicidal ideation Skin exam: PRESENT: dry, intact, warm. ABSENT: cyanosis, rash Results Laboratory Results: WBC 6.1 10^3/uL (4.0-10.5) 09/12/19 05:22 RBC 3.94 10^6/uL (3.72-5.28) 09/12/19 05:22 Hgb 11.8 g/dL (12.0-15.5) L 09/12/19 05:22 Hct 34.3 % (36.0-47.0) L 09/12/19 05:22 MCV 87 fl (80-97) 09/12/19 05:22 MCH 29.9 pg (27.0-33.4) 09/12/19 05:22 MCHC 34.4 g/dL (32.0-36.0) 09/12/19 05:22 RDW 14.8 % (11.5-14.0) H 09/12/19 05:22 Plt Count 281 10^3/uL (150-450) 09/12/19 05:22 Lymph % (Auto) Not Reportable 09/09/19 19:15 Martin % (Auto) Not Reportable 09/09/19 19:15 Eos % (Auto) Not Reportable 09/09/19 19:15 Baso % (Auto) Not Reportable 09/09/19 19:15 Absolute Neuts (auto) Not Reportable 09/09/19 19:15 Absolute Lymphs (auto) Not Reportable 09/09/19 19:15 Absolute Monos (auto) Not Reportable 09/09/19 19:15 Absolute Eos (auto) Not Reportable 09/09/19 19:15 Absolute Basos (auto) Not Reportable 09/09/19 19:15 Total Counted 100 09/09/19 19:15 Seg Neutrophils % Not Reportable 09/09/19 19:15 Seg Neuts % (Manual) 91 % (42-78) H 09/09/19 19:15 Lymphocytes % (Manual) 4 % (13-45) L 09/09/19 19:15 Monocytes % (Manual) 5 % (3-13) 09/09/19 19:15 Eosinophils % (Manual) 0 % (0-6) 09/09/19 19:15 Basophils % (Manual) 0 % (0-2) 09/09/19 19:15 Abs Neuts (Manual) 16.3 10^3/uL (1.7-8.2) H 09/09/19 19:15 Abs Lymphs (Manual) 0.7 10^3/uL (0.5-4.7) 09/09/19 19:15 Abs Monocytes (Manual) 0.9 10^3/uL (0.1-1.4) 09/09/19 19:15 Absolute Eos (Manual) 0.0 10^3/uL (0.0-0.6) 09/09/19 19:15 Abs Basophils (Manual) 0.0 10^3/uL (0.0-0.2) 09/09/19 19:15 Toxic Granulation SLIGHT 09/09/19 19:15 Platelet Comment ADEQUATE 09/09/19 19:15 Poikilocytosis SLIGHT 09/09/19 19:15 Anisocytosis SLIGHT 09/09/19 19:15 Ovalocytes SLIGHT 09/09/19 19:15 Jeana Cells SLIGHT 09/09/19 19:15 Sodium 135.5 mmol/L (137-145) L 09/13/19 04:43 Potassium 3.7 mmol/L (3.6-5.0) 09/13/19 04:43 Chloride 110 mmol/L (98-107) H 09/13/19 04:43 Carbon Dioxide 24 mmol/L (22-30) 09/13/19 04:43 Anion Gap 2 (5-19) L 09/13/19 04:43 BUN 21 mg/dL (7-20) H 09/13/19 04:43 Creatinine 1.12 mg/dL (0.52-1.25) 09/13/19 04:43 Est GFR ( Amer) 58 (>60) L 09/13/19 04:43 Est GFR (MDRD) Non-Af 48 (>60) L 09/13/19 04:43 Glucose 99 mg/dL (75-110) 09/13/19 04:43 POC Glucose 89 mg/dL (70-110) 09/13/19 10:27 Hemoglobin A1c % 7.7 % (4.7-6.0) H 09/10/19 05:18 Lactic Acid 0.9 mmol/L (0.7-2.1) 09/10/19 09:20 Calcium 8.2 mg/dL (8.4-10.2) L 09/13/19 04:43 Magnesium 1.8 mg/dL (1.6-2.3) 09/12/19 05:22 Total Bilirubin 0.9 mg/dL (0.2-1.3) 09/13/19 04:43 Direct Bilirubin 0.3 mg/dL (0.0-0.4) 09/13/19 04:43 Neonat Total Bilirubin Not Reportable 09/13/19 04:43 Neonat Direct Bilirubin Not Reportable 09/13/19 04:43 Neonat Indirect Bili Not Reportable 09/13/19 04:43 AST 44 U/L (14-36) H 09/13/19 04:43 ALT 28 U/L (<35) 09/13/19 04:43 Alkaline Phosphatase 251 U/L (38-126) H 09/13/19 04:43 Troponin I 0.013 ng/mL 09/12/19 05:22 Total Protein 5.2 g/dL (6.3-8.2) L 09/13/19 04:43 Albumin 2.2 g/dL (3.5-5.0) L 09/13/19 04:43 Triglycerides 68 mg/dL (<150) 09/10/19 05:18 Cholesterol 92.47 mg/dL (0-200) 09/10/19 05:18 LDL Cholesterol Direct 37 mg/dL (<100) 09/10/19 05:18 VLDL Cholesterol 14.0 mg/dL (10-31) 09/10/19 05:18 HDL Cholesterol 41 mg/dL (>40) 09/10/19 05:18 Amylase 74 U/L (30-110) 09/09/19 19:15 Lipase 41.5 U/L (23-300) 09/09/19 19:15 TSH 0.08 uIU/mL (0.47-4.68) L 09/09/19 19:15 Free T3 pg/mL 2.00 pg/mL (2.77-5.27) L 09/09/19 19:15 Urine Color DARK YELLOW 09/09/19 19:15 Urine Appearance SLIGHTLY-CLOUDY 09/09/19 19:15 Urine pH 5.0 (5.0-9.0) 09/09/19 19:15 Ur Specific Johnston 1.020 09/09/19 19:15 Urine Protein 30 mg/dL (NEGATIVE) H 09/09/19 19:15 Urine Glucose (UA) 50 mg/dL (NEGATIVE) H 09/09/19 19:15 Urine Ketones NEGATIVE mg/dL (NEGATIVE) 09/09/19 19:15 Urine Blood SMALL (NEGATIVE) H 09/09/19 19:15 Urine Nitrite (Reflex) NEGATIVE (NEGATIVE) 09/09/19 19:15 Urine Bilirubin NEGATIVE (NEGATIVE) 09/09/19 19:15 Urine Urobilinogen NEGATIVE mg/dL (<2.0) 09/09/19 19:15 Leukocyte Esterase Rfl MODERATE (NEGATIVE) H 09/09/19 19:15 Urine RBC (Auto) 4 /HPF 09/09/19 19:15 U Hyaline Cast (Auto) 33 /LPF 09/09/19 19:15 Urine Bacteria (Auto) TRACE /HPF 09/09/19 19:15 Urine WBC (Reflex) 23 /HPF 09/09/19 19:15 Squamous Epi Cells Auto 10 /HPF 09/09/19 19:15 Urine Mucus (Auto) FEW /LPF 09/09/19 19:15 Urine Ascorbic Acid NEGATIVE (NEGATIVE) 09/09/19 19:15 09/12/19 05:22 Troponin I 0.013 Impressions: Abdomen/Pelvis CT 09/09/19 20:31 IMPRESSION: Findings consistent with cholelithiasis and acute cholecystitis with adjacent wall thickening in the duodenum and the hepatic flexure of the colon. This could be further evaluated with ultrasound or nuclear medicine study Appendix likely within normal limits. No convincing evidence for appendicitis Small amount of free fluid in the pelvis Extensive vascular calcification Moderate hiatal hernia with bilateral basilar atelectasis Plan Plan of Treatment: Patient is discharged home in stable condition. She is instructed to follow-up with her primary care provider within 1 week. She is to follow-up with Dr. Brunson next week. She has been educated by nursing on how to care for her ED drain. She is instructed take her medications as prescribed. She is educated on a soft, low residue diet; advance as tolerated. She is instructed to return to the emergency department as needed for concerning symptoms. Time Spent: Greater than 30 Minutes Stroke Is this a Stroke Patient?: No Acute Heart Failure - Is this a Heart Failure Patient?: No
[2019-09-13] MEDS: EZETIMIBE 10 MG TABLET PO SCH (12:45)
[2019-09-13 13:11] VITALS: BP 150/61
== END 2019-09-13 15:30 | disposition home or self-care (01) | DRG 418 ==
LOC: ER 18:39 → EH 23:48 → 4N 09-10 00:57
PROVIDERS: ADMIT Emergency Medicine; ATTEND Registered Nurse
PROC: 0FT44ZZ Resection of Gallbladder, Percutaneous Endoscopic Approach (ICD-10-PCS; principal; 2019-09-11 11:15)
DX: K81.0 Acute cholecystitis (principal); E87.1 Hypo-osmolality and hyponatremia; I10 Essential (primary) hypertension; E78.5 Hyperlipidemia, unspecified; K82.A1 Gangrene of gallbladder in cholecystitis; I25.10 Atherosclerotic heart disease of native coronary artery without angina pectoris; E11.51 Type 2 diabetes mellitus with diabetic peripheral angiopathy without gangrene; K82.8 Other specified diseases of gallbladder; F41.9 Anxiety disorder, unspecified; F32.9 Major depressive disorder, single episode, unspecified; E11.42 Type 2 diabetes mellitus with diabetic polyneuropathy; E83.51 Hypocalcemia; R68.0 Hypothermia, not associated with low environmental temperature; E66.9 Obesity, unspecified; M19.90 Unspecified osteoarthritis, unspecified site; Z83.3 Family history of diabetes mellitus; Z82.49 Family history of ischemic heart disease and other diseases of the circulatory system; Z83.438 Family history of other disorder of lipoprotein metabolism and other lipidemia; Z95.5 Presence of coronary angioplasty implant and graft; Z79.4 Long term (current) use of insulin; Z86.73 Personal history of transient ischemic attack (TIA), and cerebral infarction without residual deficits; R01.1 Cardiac murmur, unspecified
CPT/HCPCS: 00790; 36415; 74177; 80048; 80053; 80061; 80076; 81001; 82150; 82962; 83036; 83605; 83690; 83735; 84443; 84481; 84484; 85025; 85027; 88304; 93005; 93010; 93306; 96361; 96365; 96375; 99285; J0330; J0360; J1100; J1644; J1815; J2250; J2270; J2405; J2543; J2704; J2710; J3010; J3490; J7030; J7050; J7120; S0028